=== PATIENT | male | born 1960 | race Caucasian/White ===

== ENCOUNTER → 2018-11-20 | Outpatient (REF) ==
[~2018-11-20] MED LIST: LISI-538 PO; METF10004 PO
== END ==
LOC: M LAB LCGH 11:27
PROVIDERS: ATTEND Nurse Practitioner Family
DX: Z53.9 Procedure and treatment not carried out, unspecified reason (principal)

== ENCOUNTER → 2019-01-01 | Outpatient (CLI) | payer BC ==
[~2019-01-01] MED LIST changes: +GASTROGRAFIN SOLUTION 30ML (Q9963) As Ordered ONE; +ISOVUE-370 76% 100ML VIAL (Q9967) As Ordered ONE
--- NOTE | 2019-01-01 14:47 | REP ---
CT CHEST WITH IV CONTRAST: HISTORY: Staging CLL. No comparison CT study. CT CONTRAST DOSE: 100 mL of intravenous Isovue [address] FINDINGS: There is good opacification of the thoracic aorta and its branches as well as the pulmonary arterial tree. There is no CT evidence to suggest pulmonary embolus. Vascular calcification is noted. There is some mild plaquing and mild narrowing of the left subclavian artery. There is a significant focal narrowing of the proximal thoracic aorta approximately 3.4 cm distal to the origin of the left subclavian artery. Findings are consistent with coarctation of the aorta. At the level of the coarct, the aortic lumen narrows to 7.0 mm in greatest diameter, the aortic diameter distal to the left subclavian artery and proximal to the coarct is 27 mm. The proximal descending aorta just distal to the coarct measures 38 mm. No pleural or pericardial effusion is seen. There is no hilar or mediastinal adenopathy. There are a few scattered normal-sized subcentimeter lymph nodes in the mediastinum. The lung rebollar are clear. No bony destructive lesion is seen. IMPRESSION: 1. Incidental significant appearing coarctation of the thoracic aorta. There is post stenotic dilation. 2. No evidence of mass or adenopathy. Electronically Signed by Lobo Chapman MD 01/01/2019 05:03 P
--- NOTE | 2019-01-01 14:52 | REP ---
CT ABDOMEN AND PELVIS WITH IV AND ORAL CONTRAST: HISTORY: Staging CLL. No comparison CT study. CT CONTRAST DOSE: 100 mL of intravenous Isovue 370. CT FINDINGS: Digital preliminary radio station engineer radiograph demonstrates an unremarkable bowel gas pattern. There is mild to moderate diffuse fatty infiltration of the liver. The liver is not felt to be enlarged. No focal liver mass lesion is seen. The spleen is homogeneous in texture, normal in size. No adrenal lesion is seen. No abnormality is noted in the pancreas or gallbladder. There are some upper abdominal periaortic and portacaval lymph nodes. The portacaval node is the largest lymph node visible in the upper abdomen. This measures 4.1 cm craniocaudal x 3.3 cm medial to lateral x 1.6 cm anteroposterior. The other visualized retroperitoneal lymph nodes are smaller and individually normal in size. No mesenteric adenopathy is appreciated. No inguinal or pelvic adenopathy is seen. There is some calcification of the vas deferens and dystrophic calcifications are seen in the prostate. Urinary bladder is unremarkable. No bony destructive lesion is seen. IMPRESSION: There is one prominent lymph node in the portacaval location in the upper abdomen, 4.1 x 3.3 x 1.6 cm in diameter. Diffuse fatty infiltration is seen in the liver. Otherwise negative. Electronically Signed by Lobo Chapman MD 01/01/2019 05:03 P
== END ==
LOC: M RAD 12:12
PROVIDERS: ATTEND Internal Medicine Hematology
DX: C91.10 Chronic lymphocytic leukemia of B-cell type not having achieved remission (principal)
CPT/HCPCS: 71260; 74178; Q9963; Q9967

== ENCOUNTER 2021-02-24 19:19 | Inpatient (IN) | payer BC ==
[~2021-02-24] VITALS: Ht 165.1 cm; Wt 101.3 kg
[~2021-02-24 19:19] MED LIST changes: -GASTROGRAFIN SOLUTION 30ML (Q9963) As Ordered ONE; +GLIM2TAB4 PO; -ISOVUE-370 76% 100ML VIAL (Q9967) As Ordered ONE; -LISI-538 PO; +LISI20TA33 PO; +LISI30TA4 PO
[2021-02-24] MEDS ORDERED: MOM 30ML SUSPENSION UDC PO PRN (19:45)
[2021-02-24 20:00] VITALS: BP 161/78
[2021-02-24] MEDS ORDERED: ENOXAPARIN 100MG/1ML SYRINGE (J1650 PER 10MG) SC SCH (21:00)
[2021-02-24 21:11] LABS: HEMATOCRIT 42.1 % (42.0-52.0); HEMOGLOBIN 13.6 g/dl (13.5-17.5); MEAN CORPUSCULAR HEMOGLOBIN 25.2 pg (27.0-33.0); MEAN CORPUSCULAR HGB CONC 32.3 g/dl (32.0-36.5); MEAN CORPUSCULAR VOLUME 78.1 fl (80.0-96.0); PLATELET COUNT, AUTOMATED 251 10^3/uL (150-450); RED BLOOD COUNT 5.39 10^6/uL (4.30-6.10); WHITE BLOOD COUNT 10.4 10^3/uL (4.0-10.0)
[2021-02-24 21:22] LABS: FIBRINOGEN 296 MG/DL (268-480); INR 1.18; PROTHROMBIN TIME 15.4 SECONDS (12.7-14.5)
[2021-02-24 21:30] LABS: ABG HCO3 23.1 MEQ/L (22.0-26.0); ABG O2 SATURATION 94.5 % (95.0-99.0); ABG PARTIAL PRESSURE CO2 36.9 mmHg (35.0-45.0); ABG PARTIAL PRESSURE O2 76.6 mmHg (75.0-100.0); ABG STANDARD HCO3 23.6 MEQ/L (22.0-26.0); ABG TOTAL CO2 24.3 MEQ/L (23.0-31.0); ABG pH (ARTERIAL) 7.415 UNITS (7.350-7.450)
[2021-02-24 21:41] LABS: RSV AMPLIFICATION NEGATIVE (NEGATIVE)
[2021-02-24 21:46] LABS: ALBUMIN 3.2 GM/DL (3.2-5.2); ALT/SGPT 59 U/L (12-78); BILIRUBIN,TOTAL 0.3 MG/DL (0.2-1.0); BLOOD UREA NITROGEN 22 MG/DL (7-18); CALCIUM LEVEL 8.5 MG/DL (8.8-10.2); CARBON DIOXIDE LEVEL 29 MEQ/L (21-32); CHLORIDE LEVEL 99 MEQ/L (98-107); CREATININE FOR GFR 0.96 MG/DL (0.70-1.30); FERRITIN 1168 NG/ML (26-388); GLOMERULAR FILTRATION RATE > 60.0 (>49); GLUCOSE, FASTING 137 MG/DL (70-100); LDH LACTATE DEHYDROGENASE 861 U/L (87-241); MAGNESIUM LEVEL 2.5 MG/DL (1.8-2.4); NT-PRO BNP 56 PG/ML (<125); POTASSIUM SERUM 5.3 MEQ/L (3.5-5.1); SODIUM LEVEL 134 MEQ/L (136-145); TOTAL PROTEIN 6.5 GM/DL (6.4-8.2)
[2021-02-24 22:00] VITALS: BP 146/76
[2021-02-24] MEDS: DOCUSATE SODIUM 100MG CAPSULE PO SCH (22:06)
[2021-02-24 22:30] LABS: D-DIMER QUANT > 4000 ng/ml (<500)
[2021-02-24] MEDS ORDERED: SOD POLYSTYRENE SULFONATE SUSP 15 GM/60 ML UD PO ONE (23:00)
[2021-02-24] MEDS ORDERED: DEXTROSE 50% 50 ML SYRINGE IV PRN (23:25)
[2021-02-24] MEDS ORDERED: GLUCAGON INJ 1MG VIAL SC PRN (23:25)
[2021-02-24] MEDS ORDERED: GLUCOSE 4GM CHEW TABLET PO PRN (23:25)
[2021-02-25] VITALS (8 sets, daily range): BP systolic 118–158; BP diastolic 53–80
[2021-02-25] MEDS ORDERED: ALBUTEROL 90 MCG/ACT 8GM HFA INHALER INH PRN (00:20)
[2021-02-25] MEDS: PIPERACILLIN/TAZOBACTAM SOD 4.5 GM in D5W MINI-BAG PLUS 100 ML IV SCH ×4 (00:57→18:05)
[2021-02-25] MEDS: BARICITINIB 2MG TABLET (OLUMIANT) FOR EUA PO SCH ×2 (00:59→20:48)
[2021-02-25] MEDS ORDERED: METF-877 PO (01:12)
[2021-02-25] MEDS ORDERED: LISI30TA4 PO (01:12)
[2021-02-25] MEDS ORDERED: GLIM2TAB4 PO (01:12)
[2021-02-25] MEDS: guaiFENesin SYRUP 200MG 10ML UDC PO PRN (01:13)
[2021-02-25] MEDS ORDERED: HOME MED LIST COMPLETE! XX SCH (01:15)
[2021-02-25] MEDS: VANCOMYCIN HCL 1,000 MG, VIAL MATE ADAPTER 1 EACH in NS 250 ML IV SCH ×2 (02:00→09:51)
[2021-02-25] MEDS ORDERED: VANCOMYCIN HCL 1,000 MG, VIAL MATE ADAPTER 1 EACH in NS 250 ML IV ONE (03:00)
[2021-02-25 05:59] LABS: HEMATOCRIT 37.1 % (42.0-52.0); MEAN CORPUSCULAR HEMOGLOBIN 25.3 pg (27.0-33.0); MEAN CORPUSCULAR HGB CONC 32.3 g/dl (32.0-36.5); MEAN CORPUSCULAR VOLUME 78.1 fl (80.0-96.0); PLATELET COUNT, AUTOMATED 235 10^3/uL (150-450); RED BLOOD COUNT 4.75 10^6/uL (4.30-6.10); WHITE BLOOD COUNT 10.1 10^3/uL (4.0-10.0)
[2021-02-25] MEDS ORDERED: ENOXAPARIN 100MG/1ML SYRINGE (J1650 PER 10MG) SC SCH (06:00)
[2021-02-25 06:32] LABS: ALBUMIN 2.9 GM/DL (3.2-5.2); ALT/SGPT 48 U/L (12-78); BILIRUBIN,DIRECT 0.2 MG/DL (0.0-0.2); BILIRUBIN,TOTAL 0.4 MG/DL (0.2-1.0); BLOOD UREA NITROGEN 23 MG/DL (7-18); CARBON DIOXIDE LEVEL 26 MEQ/L (21-32); CHLORIDE LEVEL 101 MEQ/L (98-107); CREATININE FOR GFR 0.86 MG/DL (0.70-1.30); GLOMERULAR FILTRATION RATE > 60.0 (>49); GLUCOSE, FASTING 105 MG/DL (70-100); MAGNESIUM LEVEL 2.3 MG/DL (1.8-2.4); POTASSIUM SERUM 4.5 MEQ/L (3.5-5.1); SODIUM LEVEL 135 MEQ/L (136-145); TOTAL PROTEIN 5.9 GM/DL (6.4-8.2)
[2021-02-25] MEDS: HumaLOG INSULIN (NovoLOG) PER UNIT SC SCH ×4 (07:27→20:49)
[2021-02-25] MEDS: DOCUSATE SODIUM 100MG CAPSULE PO SCH ×2 (07:28→20:48)
[2021-02-25] MEDS: dexameTHASONE 4 MG/ML 1ML VIAL (J1100 PER 1MG) IV SCH (09:51)
[2021-02-25] MEDS: REMDESIVIR 100 MG in NS 250 ML IV SCH (12:16)
[2021-02-25] MEDS: ENOXAPARIN 80MG/0.8ML SYRINGE (J1650 PER 10MG) SC SCH (18:05)
[2021-02-26] VITALS: BP 132/64
[2021-02-26] MEDS: PIPERACILLIN/TAZOBACTAM SOD 4.5 GM in D5W MINI-BAG PLUS 100 ML IV SCH ×3 (00:36→12:44)
[2021-02-26 04:00] VITALS: BP 138/68
[2021-02-26] MEDS: ENOXAPARIN 80MG/0.8ML SYRINGE (J1650 PER 10MG) SC SCH ×2 (05:13→17:20)
[2021-02-26 05:30] LABS: BASO % 0.2 % (0.0-1.0); EOS # 0.1 10^3/uL (0.0-0.5); EOS % 0.7 % (0.0-3.0); HEMATOCRIT 37.1 % (42.0-52.0); HEMOGLOBIN 11.7 g/dl (13.5-17.5); LYMPH # 6.8 10^3/uL (1.5-5.0); LYMPH % 63.7 % (24.0-44.0); MEAN CORPUSCULAR HEMOGLOBIN 25.1 pg (27.0-33.0); MEAN CORPUSCULAR HGB CONC 31.5 g/dl (32.0-36.5); MEAN CORPUSCULAR VOLUME 79.6 fl (80.0-96.0); MONO # 0.2 10^3/uL (0.0-0.8); NEUTROPHILS # 3.5 10^3/uL (1.5-8.5); NEUTROPHILS % 32.9 % (36.0-66.0); PLATELET COUNT, AUTOMATED 223 10^3/uL (150-450); RED BLOOD COUNT 4.66 10^6/uL (4.30-6.10); WHITE BLOOD COUNT 10.7 10^3/uL (4.0-10.0)
[2021-02-26 06:02] LABS: ALBUMIN 2.7 GM/DL (3.2-5.2); ALT/SGPT 42 U/L (12-78); BILIRUBIN,TOTAL 0.4 MG/DL (0.2-1.0); BLOOD UREA NITROGEN 25 MG/DL (7-18); CARBON DIOXIDE LEVEL 30 MEQ/L (21-32); CHLORIDE LEVEL 102 MEQ/L (98-107); CREATININE FOR GFR 0.88 MG/DL (0.70-1.30); GLOMERULAR FILTRATION RATE > 60.0 (>49); GLUCOSE, FASTING 89 MG/DL (70-100); MAGNESIUM LEVEL 2.4 MG/DL (1.8-2.4); PHOSPHORUS LEVEL 4.8 MG/DL (2.5-4.9); POTASSIUM SERUM 4.9 MEQ/L (3.5-5.1); SODIUM LEVEL 138 MEQ/L (136-145); TOTAL PROTEIN 6.1 GM/DL (6.4-8.2)
[2021-02-26] MEDS: guaiFENesin SYRUP 200MG 10ML UDC PO PRN (06:20)
[2021-02-26 07:09] VITALS: BP 116/59
[2021-02-26] MEDS: HumaLOG INSULIN (NovoLOG) PER UNIT SC SCH ×4 (07:30→21:00)
[2021-02-26] MEDS: DOCUSATE SODIUM 100MG CAPSULE PO SCH (07:33)
[2021-02-26] MEDS: dexameTHASONE 4 MG/ML 1ML VIAL (J1100 PER 1MG) IV SCH (08:28)
[2021-02-26] MEDS: REMDESIVIR 100 MG in NS 250 ML IV SCH (11:00)
[2021-02-26 12:45] VITALS: BP 129/59
[2021-02-26] MEDS: MOXIFLOXACIN HCL 400 MG in IV 1 EA IV SCH (16:23)
[2021-02-26 16:25] VITALS: BP 142/67
[2021-02-26 20:00] VITALS: BP 161/65
[2021-02-26] MEDS: BENZONATATE 100MG CAPSULE PO PRN (21:34)
[2021-02-26] MEDS: BARICITINIB 2MG TABLET (OLUMIANT) FOR EUA PO SCH (21:34)
[2021-02-27] VITALS: BP 146/72
[2021-02-27] MEDS: guaiFENesin SYRUP 200MG 10ML UDC PO PRN ×5 (01:44→20:26)
[2021-02-27 04:00] VITALS: BP 141/85
[2021-02-27] MEDS: ENOXAPARIN 80MG/0.8ML SYRINGE (J1650 PER 10MG) SC SCH ×2 (06:10→18:07)
[2021-02-27] MEDS: BENZONATATE 100MG CAPSULE PO PRN (06:10)
[2021-02-27 06:30] LABS: HEMATOCRIT 36.6 % (42.0-52.0); HEMOGLOBIN 11.7 g/dl (13.5-17.5); MEAN CORPUSCULAR HEMOGLOBIN 25.7 pg (27.0-33.0); MEAN CORPUSCULAR VOLUME 80.3 fl (80.0-96.0); PLATELET COUNT, AUTOMATED 199 10^3/uL (150-450); RED BLOOD COUNT 4.56 10^6/uL (4.30-6.10); WHITE BLOOD COUNT 12.5 10^3/uL (4.0-10.0)
[2021-02-27 06:48] LABS: BLOOD UREA NITROGEN 21 MG/DL (7-18); CALCIUM LEVEL 7.9 MG/DL (8.8-10.2); CARBON DIOXIDE LEVEL 31 MEQ/L (21-32); CHLORIDE LEVEL 103 MEQ/L (98-107); CREATININE FOR GFR 0.85 MG/DL (0.70-1.30); GLOMERULAR FILTRATION RATE > 60.0 (>49); GLUCOSE, FASTING 90 MG/DL (70-100); POTASSIUM SERUM 5.1 MEQ/L (3.5-5.1); SODIUM LEVEL 136 MEQ/L (136-145)
[2021-02-27 06:54] LABS: ATYPICAL LYMPH 26 % (0-5); EOSINOPHILS 2 % (0-3); LYMPHOCYTES 21 % (16-44); MONOCYTES 1 % (0-5); NEUTROPHILS 50 % (28-66)
[2021-02-27 06:55] LABS: ANISOCYTOSIS 1+; PLATELET ESTIMATE NORMAL (NORMAL)
[2021-02-27 06:56] LABS: POIKILOCYTOSIS 1+; POLYCHROMASIA 1+
[2021-02-27] MEDS: HumaLOG INSULIN (NovoLOG) PER UNIT SC SCH ×4 (07:30→20:26)
[2021-02-27 07:43] VITALS: BP 155/79
[2021-02-27] MEDS: dexameTHASONE 4 MG/ML 1ML VIAL (J1100 PER 1MG) IV SCH (08:54)
[2021-02-27] MEDS: REMDESIVIR 100 MG in NS 250 ML IV SCH (11:37)
[2021-02-27 11:39] VITALS: BP 142/63
[2021-02-27 15:11] LABS: BODY FLUID CULTURE Not indicated. (.); LEGIONELLA ANTIGEN URINE Negative (Negative); ORGANISM ID Not indicated. (.); SPECIMEN SOURCE Urine (.); URINE STREP PNEUMONIAE ANTIGEN Negative (Negative)
[2021-02-27] MEDS: BENZONATATE 100MG CAPSULE PO SCH ×2 (15:38→20:26)
[2021-02-27] MEDS: MOXIFLOXACIN HCL 400 MG in IV 1 EA IV SCH (15:38)
[2021-02-27 15:42] VITALS: BP 139/61
[2021-02-27 20:00] VITALS: BP 145/67
[2021-02-27] MEDS: BARICITINIB 2MG TABLET (OLUMIANT) FOR EUA PO SCH (20:26)
[2021-02-27] MEDS: ACETAMINOPHEN TAB 650MG DOSE (2X325MG) PO PRN (20:27)
[2021-02-28] VITALS: BP 123/74
[2021-02-28 04:00] VITALS: BP 119/73
[2021-02-28 05:49] LABS: HEMATOCRIT 36.7 % (42.0-52.0); HEMOGLOBIN 11.5 g/dl (13.5-17.5); MEAN CORPUSCULAR HEMOGLOBIN 25.3 pg (27.0-33.0); MEAN CORPUSCULAR HGB CONC 31.3 g/dl (32.0-36.5); MEAN CORPUSCULAR VOLUME 80.7 fl (80.0-96.0); PLATELET COUNT, AUTOMATED 197 10^3/uL (150-450); RED BLOOD COUNT 4.55 10^6/uL (4.30-6.10); WHITE BLOOD COUNT 12.4 10^3/uL (4.0-10.0)
[2021-02-28] MEDS: ENOXAPARIN 80MG/0.8ML SYRINGE (J1650 PER 10MG) SC SCH ×2 (06:00→17:41)
[2021-02-28 06:06] LABS: ALT/SGPT 44 U/L (12-78); BILIRUBIN,TOTAL 0.4 MG/DL (0.2-1.0); BLOOD UREA NITROGEN 22 MG/DL (7-18); CALCIUM LEVEL 8.1 MG/DL (8.8-10.2); CARBON DIOXIDE LEVEL 28 MEQ/L (21-32); CHLORIDE LEVEL 102 MEQ/L (98-107); CREATININE FOR GFR 0.73 MG/DL (0.70-1.30); GLOMERULAR FILTRATION RATE > 60.0 (>49); GLUCOSE, FASTING 108 MG/DL (70-100); MAGNESIUM LEVEL 2.1 MG/DL (1.8-2.4); PHOSPHORUS LEVEL 3.9 MG/DL (2.5-4.9); POTASSIUM SERUM 4.5 MEQ/L (3.5-5.1); SODIUM LEVEL 135 MEQ/L (136-145)
[2021-02-28 06:52] LABS: ATYPICAL LYMPH 15 % (0-5); EOSINOPHILS 1 % (0-3); LYMPHOCYTES 31 % (16-44); MONOCYTES 2 % (0-5); NEUTROPHILS 48 % (28-66); PLASMA CELL 1 % (0-0)
[2021-02-28 06:56] LABS: ANISOCYTOSIS 1+; MICROCYTOSIS 1+; PLATELET CLUMPS SMALL AMT; PLATELET ESTIMATE NORMAL (NORMAL); SMUDGE CELLS 1+
[2021-02-28] MEDS: HumaLOG INSULIN (NovoLOG) PER UNIT SC SCH ×4 (07:28→20:39)
[2021-02-28] MEDS: dexameTHASONE 4 MG/ML 1ML VIAL (J1100 PER 1MG) IV SCH ×2 (07:56→08:00)
[2021-02-28] MEDS: BENZONATATE 100MG CAPSULE PO SCH ×3 (07:56→20:38)
[2021-02-28 08:02] VITALS: BP 129/60
[2021-02-28] MEDS: REMDESIVIR 100 MG in NS 250 ML IV SCH (10:42)
[2021-02-28] MEDS: guaiFENesin SYRUP 200MG 10ML UDC PO PRN ×2 (10:42→16:29)
[2021-02-28 12:00] VITALS: BP 136/60
[2021-02-28 16:24] VITALS: BP 134/67
[2021-02-28] MEDS: MOXIFLOXACIN HCL 400 MG in IV 1 EA IV SCH (16:29)
[2021-02-28 20:00] VITALS: BP 122/73
[2021-02-28] MEDS: BARICITINIB 2MG TABLET (OLUMIANT) FOR EUA PO SCH (20:38)
[2021-03-01] VITALS: BP 120/70
[2021-03-01 04:00] VITALS: BP 136/69
[2021-03-01 05:03] LABS: HEMOGLOBIN 12.1 g/dl (13.5-17.5); MEAN CORPUSCULAR HEMOGLOBIN 25.5 pg (27.0-33.0); MEAN CORPUSCULAR HGB CONC 31.8 g/dl (32.0-36.5); MEAN CORPUSCULAR VOLUME 80.2 fl (80.0-96.0); PLATELET COUNT, AUTOMATED 183 10^3/uL (150-450); RED BLOOD COUNT 4.74 10^6/uL (4.30-6.10); WHITE BLOOD COUNT 16.4 10^3/uL (4.0-10.0)
[2021-03-01 05:22] LABS: ALT/SGPT 43 U/L (12-78); BILIRUBIN,TOTAL 0.5 MG/DL (0.2-1.0); BLOOD UREA NITROGEN 19 MG/DL (7-18); CALCIUM LEVEL 8.1 MG/DL (8.8-10.2); CARBON DIOXIDE LEVEL 28 MEQ/L (21-32); CHLORIDE LEVEL 101 MEQ/L (98-107); CREATININE FOR GFR 0.78 MG/DL (0.70-1.30); GLOMERULAR FILTRATION RATE > 60.0 (>49); GLUCOSE, FASTING 124 MG/DL (70-100); POTASSIUM SERUM 4.8 MEQ/L (3.5-5.1); SODIUM LEVEL 135 MEQ/L (136-145); TOTAL PROTEIN 6.5 GM/DL (6.4-8.2)
[2021-03-01] MEDS: ENOXAPARIN 80MG/0.8ML SYRINGE (J1650 PER 10MG) SC SCH ×2 (06:30→18:31)
[2021-03-01] MEDS: guaiFENesin SYRUP 200MG 10ML UDC PO PRN ×2 (08:38→13:34)
[2021-03-01] MEDS: BENZONATATE 100MG CAPSULE PO SCH ×3 (08:38→20:45)
[2021-03-01] MEDS: HumaLOG INSULIN (NovoLOG) PER UNIT SC SCH ×4 (08:39→20:46)
[2021-03-01] MEDS: dexameTHASONE 4 MG/ML 1ML VIAL (J1100 PER 1MG) IV SCH (08:39)
[2021-03-01 08:40] VITALS: BP 129/61
[2021-03-01 11:50] VITALS: BP 135/61
[2021-03-01] MEDS: MOXIFLOXACIN HCL 400 MG in IV 1 EA IV SCH (17:03)
[2021-03-01 17:09] VITALS: BP 154/67
[2021-03-01 20:00] VITALS: BP 154/68
[2021-03-01] MEDS: BARICITINIB 2MG TABLET (OLUMIANT) FOR EUA PO SCH (20:46)
[2021-03-02] VITALS (8 sets, daily range): BP systolic 122–164; BP diastolic 59–75
[2021-03-02 05:44] LABS: BLOOD UREA NITROGEN 17 MG/DL (7-18); CALCIUM LEVEL 8.1 MG/DL (8.8-10.2); CARBON DIOXIDE LEVEL 29 MEQ/L (21-32); CHLORIDE LEVEL 103 MEQ/L (98-107); CREATININE FOR GFR 0.76 MG/DL (0.70-1.30); GLOMERULAR FILTRATION RATE > 60.0 (>49); GLUCOSE, FASTING 130 MG/DL (70-100); MAGNESIUM LEVEL 2.2 MG/DL (1.8-2.4); POTASSIUM SERUM 4.4 MEQ/L (3.5-5.1); SODIUM LEVEL 137 MEQ/L (136-145)
[2021-03-02] MEDS: ENOXAPARIN 80MG/0.8ML SYRINGE (J1650 PER 10MG) SC SCH ×2 (06:12→18:39)
[2021-03-02] MEDS: HumaLOG INSULIN (NovoLOG) PER UNIT SC SCH ×4 (09:58→20:52)
[2021-03-02] MEDS: dexameTHASONE 4 MG/ML 1ML VIAL (J1100 PER 1MG) IV SCH (09:59)
[2021-03-02] MEDS: guaiFENesin SYRUP 200MG 10ML UDC PO PRN ×3 (09:59→20:38)
[2021-03-02] MEDS: BENZONATATE 100MG CAPSULE PO SCH ×3 (09:59→20:37)
[2021-03-02] MEDS ORDERED: MOXIFLOXACIN 400 MG TAB PO SCH (16:00)
[2021-03-02] MEDS: BARICITINIB 2MG TABLET (OLUMIANT) FOR EUA PO SCH (20:38)
[2021-03-03] VITALS (7 sets, daily range): BP systolic 130–159; BP diastolic 60–77
[2021-03-03 04:55] LABS: HEMATOCRIT 35.8 % (42.0-52.0); HEMOGLOBIN 11.4 g/dl (13.5-17.5); MEAN CORPUSCULAR HEMOGLOBIN 25.7 pg (27.0-33.0); MEAN CORPUSCULAR HGB CONC 31.8 g/dl (32.0-36.5); MEAN CORPUSCULAR VOLUME 80.6 fl (80.0-96.0); PLATELET COUNT, AUTOMATED 180 10^3/uL (150-450); RED BLOOD COUNT 4.44 10^6/uL (4.30-6.10); WHITE BLOOD COUNT 14.3 10^3/uL (4.0-10.0)
[2021-03-03] MEDS: ENOXAPARIN 80MG/0.8ML SYRINGE (J1650 PER 10MG) SC SCH ×2 (05:23→16:46)
[2021-03-03 05:26] LABS: BLOOD UREA NITROGEN 19 MG/DL (7-18); CALCIUM LEVEL 8.2 MG/DL (8.8-10.2); CARBON DIOXIDE LEVEL 28 MEQ/L (21-32); CHLORIDE LEVEL 102 MEQ/L (98-107); CREATININE FOR GFR 0.84 MG/DL (0.70-1.30); GLOMERULAR FILTRATION RATE > 60.0 (>49); GLUCOSE, FASTING 132 MG/DL (70-100); MAGNESIUM LEVEL 2.2 MG/DL (1.8-2.4); PHOSPHORUS LEVEL 3.9 MG/DL (2.5-4.9); POTASSIUM SERUM 4.5 MEQ/L (3.5-5.1); SODIUM LEVEL 135 MEQ/L (136-145)
[2021-03-03] MEDS: HumaLOG INSULIN (NovoLOG) PER UNIT SC SCH ×4 (07:30→20:15)
[2021-03-03] MEDS: BENZONATATE 100MG CAPSULE PO SCH ×3 (09:12→20:16)
[2021-03-03] MEDS: guaiFENesin SYRUP 200MG 10ML UDC PO PRN ×3 (09:12→21:19)
[2021-03-03] MEDS: dexameTHASONE 4 MG/ML 1ML VIAL (J1100 PER 1MG) IV SCH (09:13)
[2021-03-03] MEDS: BARICITINIB 2MG TABLET (OLUMIANT) FOR EUA PO SCH (20:16)
[2021-03-04] VITALS (8 sets, daily range): BP systolic 117–165; BP diastolic 57–84
[2021-03-04] MEDS: ENOXAPARIN 80MG/0.8ML SYRINGE (J1650 PER 10MG) SC SCH ×2 (05:11→17:30)
[2021-03-04] MEDS: HumaLOG INSULIN (NovoLOG) PER UNIT SC SCH ×4 (07:30→20:22)
[2021-03-04] MEDS: guaiFENesin SYRUP 200MG 10ML UDC PO PRN ×3 (07:58→15:48)
[2021-03-04] MEDS: dexameTHASONE 4 MG/ML 1ML VIAL (J1100 PER 1MG) IV SCH (07:58)
[2021-03-04] MEDS: BENZONATATE 100MG CAPSULE PO SCH ×3 (07:59→20:22)
[2021-03-04] MEDS: BARICITINIB 2MG TABLET (OLUMIANT) FOR EUA PO SCH (20:22)
[2021-03-05] VITALS: BP 154/85
[2021-03-05 04:00] VITALS: BP 153/75
[2021-03-05 05:18] LABS: BLOOD UREA NITROGEN 18 MG/DL (7-18); CARBON DIOXIDE LEVEL 30 MEQ/L (21-32); CHLORIDE LEVEL 104 MEQ/L (98-107); GLOMERULAR FILTRATION RATE > 60.0 (>49); GLUCOSE, FASTING 130 MG/DL (70-100); MAGNESIUM LEVEL 2.2 MG/DL (1.8-2.4); PHOSPHORUS LEVEL 4.3 MG/DL (2.5-4.9); POTASSIUM SERUM 4.3 MEQ/L (3.5-5.1); SODIUM LEVEL 139 MEQ/L (136-145)
[2021-03-05] MEDS: ENOXAPARIN 80MG/0.8ML SYRINGE (J1650 PER 10MG) SC SCH ×2 (05:25→17:26)
[2021-03-05] MEDS: HumaLOG INSULIN (NovoLOG) PER UNIT SC SCH ×4 (07:30→20:44)
[2021-03-05 08:00] VITALS: BP 131/59
[2021-03-05] MEDS: dexameTHASONE 4 MG/ML 1ML VIAL (J1100 PER 1MG) IV SCH (10:03)
[2021-03-05] MEDS: BENZONATATE 100MG CAPSULE PO SCH ×3 (10:03→20:37)
[2021-03-05 12:00] VITALS: BP 118/57
[2021-03-05 16:00] VITALS: BP 139/63
[2021-03-05 20:00] VITALS: BP 129/77
[2021-03-05] MEDS: BARICITINIB 2MG TABLET (OLUMIANT) FOR EUA PO SCH (20:37)
[2021-03-06] VITALS (7 sets, daily range): BP systolic 117–151; BP diastolic 56–75
[2021-03-06] MEDS: ENOXAPARIN 80MG/0.8ML SYRINGE (J1650 PER 10MG) SC SCH ×2 (05:05→17:06)
[2021-03-06 05:06] LABS: HEMOGLOBIN 11.7 g/dl (13.5-17.5); MEAN CORPUSCULAR HEMOGLOBIN 25.9 pg (27.0-33.0); MEAN CORPUSCULAR HGB CONC 31.6 g/dl (32.0-36.5); MEAN CORPUSCULAR VOLUME 81.9 fl (80.0-96.0); PLATELET COUNT, AUTOMATED 207 10^3/uL (150-450); RED BLOOD COUNT 4.52 10^6/uL (4.30-6.10); WHITE BLOOD COUNT 17.3 10^3/uL (4.0-10.0)
[2021-03-06] MEDS: HumaLOG INSULIN (NovoLOG) PER UNIT SC SCH ×4 (07:30→20:58)
[2021-03-06] MEDS: dexameTHASONE 4 MG/ML 1ML VIAL (J1100 PER 1MG) IV SCH (08:30)
[2021-03-06] MEDS: BENZONATATE 100MG CAPSULE PO SCH ×3 (08:30→20:59)
[2021-03-06] MEDS: guaiFENesin SYRUP 200MG 10ML UDC PO PRN ×2 (08:30→17:05)
[2021-03-06] MEDS ORDERED: FUROSEMIDE 20MG/2ML VIAL (J1940) IV ONE (13:00)
[2021-03-06] MEDS: BARICITINIB 2MG TABLET (OLUMIANT) FOR EUA PO SCH (20:59)
[2021-03-07] VITALS (7 sets, daily range): BP systolic 135–165; BP diastolic 59–74
[2021-03-07] MEDS: ENOXAPARIN 80MG/0.8ML SYRINGE (J1650 PER 10MG) SC SCH (06:07)
[2021-03-07 07:48] LABS: HEMATOCRIT 38.2 % (42.0-52.0); MEAN CORPUSCULAR HEMOGLOBIN 25.6 pg (27.0-33.0); MEAN CORPUSCULAR HGB CONC 31.4 g/dl (32.0-36.5); MEAN CORPUSCULAR VOLUME 81.6 fl (80.0-96.0); PLATELET COUNT, AUTOMATED 229 10^3/uL (150-450); RED BLOOD COUNT 4.68 10^6/uL (4.30-6.10); WHITE BLOOD COUNT 17.7 10^3/uL (4.0-10.0)
[2021-03-07 08:09] LABS: ALBUMIN 3.2 GM/DL (3.2-5.2); ALT/SGPT 58 U/L (12-78); BILIRUBIN,TOTAL 0.3 MG/DL (0.2-1.0); BLOOD UREA NITROGEN 23 MG/DL (7-18); CALCIUM LEVEL 8.7 MG/DL (8.8-10.2); CARBON DIOXIDE LEVEL 34 MEQ/L (21-32); CHLORIDE LEVEL 101 MEQ/L (98-107); CREATININE FOR GFR 0.81 MG/DL (0.70-1.30); GLOMERULAR FILTRATION RATE > 60.0 (>49); GLUCOSE, FASTING 119 MG/DL (70-100); MAGNESIUM LEVEL 2.2 MG/DL (1.8-2.4); PHOSPHORUS LEVEL 4.1 MG/DL (2.5-4.9); POTASSIUM SERUM 4.5 MEQ/L (3.5-5.1); SODIUM LEVEL 137 MEQ/L (136-145); TOTAL PROTEIN 6.6 GM/DL (6.4-8.2)
[2021-03-07 08:24] LABS: ATYPICAL LYMPH 8 % (0-5); LYMPHOCYTES 63 % (16-44); MONOCYTES 4 % (0-5); NEUTROPHILS 25 % (28-66)
[2021-03-07 08:26] LABS: PLATELET CLUMPS SMALL AMT; PLATELET ESTIMATE NORMAL (NORMAL); SMUDGE CELLS 1+
[2021-03-07 08:27] LABS: ANISOCYTOSIS 1+; OVALOCYTES 1+
[2021-03-07] MEDS: BENZONATATE 100MG CAPSULE PO SCH ×3 (08:27→20:43)
[2021-03-07] MEDS: HumaLOG INSULIN (NovoLOG) PER UNIT SC SCH ×4 (08:28→20:46)
[2021-03-07] MEDS: dexameTHASONE 20MG/5ML VIAL (J1100 PER 1MG) IV SCH (12:40)
[2021-03-07] MEDS: ENOXAPARIN 60MG/0.6ML SYRINGE (J1650 PER 10MG) SC SCH (17:00)
[2021-03-07] MEDS: BARICITINIB 2MG TABLET (OLUMIANT) FOR EUA PO SCH (20:43)
[2021-03-08] VITALS: BP 146/66
[2021-03-08 04:00] VITALS: BP 152/73
[2021-03-08] MEDS: ENOXAPARIN 60MG/0.6ML SYRINGE (J1650 PER 10MG) SC SCH ×2 (05:21→17:04)
[2021-03-08 08:16] VITALS: BP 135/72
[2021-03-08] MEDS: HumaLOG INSULIN (NovoLOG) PER UNIT SC SCH ×4 (08:16→20:48)
[2021-03-08] MEDS: dexameTHASONE 20MG/5ML VIAL (J1100 PER 1MG) IV SCH (08:17)
[2021-03-08] MEDS: BENZONATATE 100MG CAPSULE PO SCH ×3 (08:17→20:47)
[2021-03-08 12:36] VITALS: BP 155/75
[2021-03-08] MEDS: FUROSEMIDE 40MG/4ML VIAL (J1940) IV SCH (13:44)
[2021-03-08 17:01] VITALS: BP 151/72
[2021-03-08 20:00] VITALS: BP 154/70
[2021-03-08] MEDS: BARICITINIB 2MG TABLET (OLUMIANT) FOR EUA PO SCH (20:47)
[2021-03-09] VITALS (7 sets, daily range): BP systolic 116–175; BP diastolic 57–76
[2021-03-09 04:37] LABS: HEMATOCRIT 35.9 % (42.0-52.0); HEMOGLOBIN 11.3 g/dl (13.5-17.5); MEAN CORPUSCULAR HEMOGLOBIN 25.4 pg (27.0-33.0); MEAN CORPUSCULAR HGB CONC 31.5 g/dl (32.0-36.5); MEAN CORPUSCULAR VOLUME 80.7 fl (80.0-96.0); PLATELET COUNT, AUTOMATED 223 10^3/uL (150-450); RED BLOOD COUNT 4.45 10^6/uL (4.30-6.10); WHITE BLOOD COUNT 14.8 10^3/uL (4.0-10.0)
[2021-03-09 05:05] LABS: MAGNESIUM LEVEL 2.1 MG/DL (1.8-2.4); PHOSPHORUS LEVEL 3.4 MG/DL (2.5-4.9)
[2021-03-09 05:10] LABS: ALBUMIN 3.2 GM/DL (3.2-5.2); ALT/SGPT 66 U/L (12-78); BILIRUBIN,TOTAL 0.5 MG/DL (0.2-1.0); BLOOD UREA NITROGEN 22 MG/DL (7-18); CALCIUM LEVEL 8.2 MG/DL (8.8-10.2); CARBON DIOXIDE LEVEL 33 MEQ/L (21-32); CHLORIDE LEVEL 101 MEQ/L (98-107); CREATININE FOR GFR 0.81 MG/DL (0.70-1.30); GLOMERULAR FILTRATION RATE > 60.0 (>49); GLUCOSE, FASTING 137 MG/DL (70-100); LYMPHOCYTES 65 % (16-44); MONOCYTES 3 % (0-5); NEUTROPHILS 31 % (28-66); POTASSIUM SERUM 4.8 MEQ/L (3.5-5.1); SODIUM LEVEL 138 MEQ/L (136-145); TOTAL PROTEIN 6.6 GM/DL (6.4-8.2)
[2021-03-09 05:11] LABS: PLATELET ESTIMATE NORMAL (NORMAL)
[2021-03-09] MEDS: ENOXAPARIN 60MG/0.6ML SYRINGE (J1650 PER 10MG) SC SCH ×2 (06:32→17:41)
[2021-03-09] MEDS: HumaLOG INSULIN (NovoLOG) PER UNIT SC SCH ×4 (07:35→20:15)
[2021-03-09] MEDS: BENZONATATE 100MG CAPSULE PO SCH ×3 (08:43→20:13)
[2021-03-09] MEDS: FUROSEMIDE 40MG/4ML VIAL (J1940) IV SCH (08:45)
[2021-03-09] MEDS: dexameTHASONE 20MG/5ML VIAL (J1100 PER 1MG) IV SCH (08:45)
[2021-03-09] MEDS: BARICITINIB 2MG TABLET (OLUMIANT) FOR EUA PO SCH (20:13)
[2021-03-10] VITALS (7 sets, daily range): BP systolic 135–153; BP diastolic 63–80
[2021-03-10 05:42] LABS: HEMOGLOBIN 11.4 g/dl (13.5-17.5); MEAN CORPUSCULAR HEMOGLOBIN 25.7 pg (27.0-33.0); MEAN CORPUSCULAR HGB CONC 31.7 g/dl (32.0-36.5); MEAN CORPUSCULAR VOLUME 81.1 fl (80.0-96.0); PLATELET COUNT, AUTOMATED 222 10^3/uL (150-450); RED BLOOD COUNT 4.44 10^6/uL (4.30-6.10); WHITE BLOOD COUNT 13.8 10^3/uL (4.0-10.0)
[2021-03-10 06:02] LABS: ALBUMIN 3.1 GM/DL (3.2-5.2); ALT/SGPT 69 U/L (12-78); BILIRUBIN,TOTAL 0.3 MG/DL (0.2-1.0); BLOOD UREA NITROGEN 24 MG/DL (7-18); CALCIUM LEVEL 8.3 MG/DL (8.8-10.2); CARBON DIOXIDE LEVEL 31 MEQ/L (21-32); CHLORIDE LEVEL 101 MEQ/L (98-107); CREATININE FOR GFR 0.78 MG/DL (0.70-1.30); GLOMERULAR FILTRATION RATE > 60.0 (>49); GLUCOSE, FASTING 129 MG/DL (70-100); MAGNESIUM LEVEL 2.2 MG/DL (1.8-2.4); PHOSPHORUS LEVEL 3.7 MG/DL (2.5-4.9); POTASSIUM SERUM 4.6 MEQ/L (3.5-5.1); SODIUM LEVEL 136 MEQ/L (136-145); TOTAL PROTEIN 6.3 GM/DL (6.4-8.2)
[2021-03-10 06:16] LABS: ATYPICAL LYMPH 7 % (0-5); LYMPHOCYTES 69 % (16-44); NEUTROPHILS 24 % (28-66); PLATELET ESTIMATE NORMAL (NORMAL)
[2021-03-10] MEDS: ENOXAPARIN 60MG/0.6ML SYRINGE (J1650 PER 10MG) SC SCH ×2 (06:29→17:14)
[2021-03-10] MEDS: HumaLOG INSULIN (NovoLOG) PER UNIT SC SCH ×4 (07:37→20:58)
[2021-03-10] MEDS ORDERED: SODIUM CHLORIDE NASAL 0.65% SPRAY BTL (OCEAN) PRN (08:25)
[2021-03-10] MEDS: ESCITALOPRAM OXALATE 5MG TABLET (LEXAPRO) PO SCH (08:54)
[2021-03-10] MEDS: BENZONATATE 100MG CAPSULE PO SCH ×3 (08:54→20:55)
[2021-03-10] MEDS: FUROSEMIDE 40MG/4ML VIAL (J1940) IV SCH (08:55)
[2021-03-10] MEDS ORDERED: predniSONE 20 MG TAB PO SCH (09:00)
[2021-03-10] MEDS: predniSONE 10 MG TAB PO SCH (09:03)
[2021-03-11] VITALS: BP 138/62
[2021-03-11 04:00] VITALS: BP 169/74
[2021-03-11] MEDS: ENOXAPARIN 60MG/0.6ML SYRINGE (J1650 PER 10MG) SC SCH ×2 (06:00→16:50)
[2021-03-11] MEDS: HumaLOG INSULIN (NovoLOG) PER UNIT SC SCH ×4 (07:30→20:48)
[2021-03-11] MEDS: FUROSEMIDE 40MG/4ML VIAL (J1940) IV SCH (07:45)
[2021-03-11] MEDS: ESCITALOPRAM OXALATE 5MG TABLET (LEXAPRO) PO SCH (07:45)
[2021-03-11] MEDS: BENZONATATE 100MG CAPSULE PO SCH ×3 (07:49→20:47)
[2021-03-11] MEDS: predniSONE 10 MG TAB PO SCH (07:50)
[2021-03-11 08:00] VITALS: BP 122/56
[2021-03-11 12:00] VITALS: BP 143/66
[2021-03-11] MEDS ORDERED: LEVEMIR (INSULIN DETEMIR) 1 UNITS/0.01ML SC ONE (13:45)
[2021-03-11] MEDS: SODIUM CHLORIDE NASAL 0.65% SPRAY BTL (OCEAN) SCH ×3 (14:33→20:48)
[2021-03-11 20:00] VITALS: BP 147/65
[2021-03-11] MEDS ORDERED: LEVEMIR (INSULIN DETEMIR) 1 UNITS/0.01ML SC SCH (21:00)
[2021-03-12] VITALS: BP 153/74
[2021-03-12 03:50] VITALS: BP 134/60
[2021-03-12] MEDS: ENOXAPARIN 60MG/0.6ML SYRINGE (J1650 PER 10MG) SC SCH (05:46)
[2021-03-12] MEDS: HumaLOG INSULIN (NovoLOG) PER UNIT SC SCH ×4 (07:30→21:00)
[2021-03-12] MEDS: ESCITALOPRAM OXALATE 5MG TABLET (LEXAPRO) PO SCH (09:55)
[2021-03-12] MEDS: BENZONATATE 100MG CAPSULE PO SCH ×3 (09:56→21:04)
[2021-03-12] MEDS: predniSONE 10 MG TAB PO SCH (09:56)
[2021-03-12] MEDS: LEVEMIR (INSULIN DETEMIR) 1 UNITS/0.01ML SC SCH (09:56)
[2021-03-12] MEDS: SODIUM CHLORIDE NASAL 0.65% SPRAY BTL (OCEAN) SCH ×4 (09:57→21:04)
[2021-03-12 10:00] VITALS: BP 138/69
[2021-03-12] MEDS ORDERED: FUROSEMIDE 40MG/4ML VIAL (J1940) IV ONE (11:50)
[2021-03-12] MEDS ORDERED: PANTOPRAZOLE 40MG TAB (PROTONIX) PO ONE (11:55)
[2021-03-12 12:00] VITALS: BP 135/60
[2021-03-12 16:00] VITALS: BP 102/51
[2021-03-12 20:00] VITALS: BP 113/52
[2021-03-12] MEDS ORDERED: LEVEMIR (INSULIN DETEMIR) 1 UNITS/0.01ML SC SCH (21:00)
[2021-03-12] MEDS: PANTOPRAZOLE 40MG TAB (PROTONIX) PO SCH (21:04)
[2021-03-13] VITALS: BP 148/70
[2021-03-13 04:00] VITALS: BP 131/65
[2021-03-13 04:58] LABS: HEMATOCRIT 34.4 % (42.0-52.0); HEMOGLOBIN 10.9 g/dl (13.5-17.5); MEAN CORPUSCULAR HGB CONC 31.7 g/dl (32.0-36.5); MEAN CORPUSCULAR VOLUME 82.1 fl (80.0-96.0); PLATELET COUNT, AUTOMATED 219 10^3/uL (150-450); RED BLOOD COUNT 4.19 10^6/uL (4.30-6.10); WHITE BLOOD COUNT 11.7 10^3/uL (4.0-10.0)
[2021-03-13 05:17] LABS: BLOOD UREA NITROGEN 29 MG/DL (7-18); CALCIUM LEVEL 8.1 MG/DL (8.8-10.2); CARBON DIOXIDE LEVEL 31 MEQ/L (21-32); CHLORIDE LEVEL 103 MEQ/L (98-107); CREATININE FOR GFR 0.86 MG/DL (0.70-1.30); GLOMERULAR FILTRATION RATE > 60.0 (>49); GLUCOSE, FASTING 129 MG/DL (70-100); POTASSIUM SERUM 4.1 MEQ/L (3.5-5.1); SODIUM LEVEL 141 MEQ/L (136-145)
[2021-03-13 05:36] LABS: ANISOCYTOSIS 1+; EOSINOPHILS 1 % (0-3); HYPOCHROMASIA 1+; LYMPHOCYTES 64 % (16-44); MONOCYTES 1 % (0-5); NEUTROPHILS 34 % (28-66); PLATELET ESTIMATE NORMAL (NORMAL)
[2021-03-13] MEDS: ENOXAPARIN 60MG/0.6ML SYRINGE (J1650 PER 10MG) SC SCH (06:39)
[2021-03-13 08:00] VITALS: BP 129/63
[2021-03-13] MEDS: ESCITALOPRAM OXALATE 5MG TABLET (LEXAPRO) PO SCH (08:08)
[2021-03-13] MEDS: predniSONE 10 MG TAB PO SCH (08:08)
[2021-03-13] MEDS: PANTOPRAZOLE 40MG TAB (PROTONIX) PO SCH ×2 (08:09→20:14)
[2021-03-13] MEDS: BENZONATATE 100MG CAPSULE PO SCH ×3 (08:09→20:14)
[2021-03-13] MEDS: FUROSEMIDE 40MG/4ML VIAL (J1940) IV SCH (08:10)
[2021-03-13] MEDS: SODIUM CHLORIDE NASAL 0.65% SPRAY BTL (OCEAN) SCH ×4 (08:10→20:14)
[2021-03-13] MEDS: LEVEMIR (INSULIN DETEMIR) 1 UNITS/0.01ML SC SCH (08:11)
[2021-03-13] MEDS: HumaLOG INSULIN (NovoLOG) PER UNIT SC SCH ×4 (08:11→20:14)
[2021-03-13 12:00] VITALS: BP 115/54
[2021-03-13 16:00] VITALS: BP 142/65
[2021-03-13 20:00] VITALS: BP 150/87
[2021-03-14] VITALS (7 sets, daily range): BP systolic 94–146; BP diastolic 50–65
[2021-03-14 04:56] LABS: BASO % 0.2 % (0.0-1.0); EOS # 0.3 10^3/uL (0.0-0.5); HEMATOCRIT 36.1 % (42.0-52.0); HEMOGLOBIN 11.4 g/dl (13.5-17.5); LYMPH # 8.3 10^3/uL (1.5-5.0); LYMPH % 66.5 % (24.0-44.0); MEAN CORPUSCULAR HEMOGLOBIN 25.6 pg (27.0-33.0); MEAN CORPUSCULAR HGB CONC 31.6 g/dl (32.0-36.5); MEAN CORPUSCULAR VOLUME 81.1 fl (80.0-96.0); MONO # 0.4 10^3/uL (0.0-0.8); MONO % 3.5 % (2.0-8.0); NEUTROPHILS # 3.4 10^3/uL (1.5-8.5); NEUTROPHILS % 27.5 % (36.0-66.0); PLATELET COUNT, AUTOMATED 221 10^3/uL (150-450); RED BLOOD COUNT 4.45 10^6/uL (4.30-6.10); WHITE BLOOD COUNT 12.4 10^3/uL (4.0-10.0)
[2021-03-14] MEDS: ENOXAPARIN 60MG/0.6ML SYRINGE (J1650 PER 10MG) SC SCH (05:02)
[2021-03-14 05:20] LABS: BLOOD UREA NITROGEN 26 MG/DL (7-18); CARBON DIOXIDE LEVEL 31 MEQ/L (21-32); CHLORIDE LEVEL 105 MEQ/L (98-107); CREATININE FOR GFR 0.74 MG/DL (0.70-1.30); GLOMERULAR FILTRATION RATE > 60.0 (>49); GLUCOSE, FASTING 124 MG/DL (70-100); POTASSIUM SERUM 3.6 MEQ/L (3.5-5.1); SODIUM LEVEL 139 MEQ/L (136-145)
[2021-03-14] MEDS: LEVEMIR (INSULIN DETEMIR) 1 UNITS/0.01ML SC SCH (08:32)
[2021-03-14] MEDS: PANTOPRAZOLE 40MG TAB (PROTONIX) PO SCH ×2 (08:33→20:23)
[2021-03-14] MEDS: ESCITALOPRAM OXALATE 5MG TABLET (LEXAPRO) PO SCH (08:33)
[2021-03-14] MEDS: predniSONE 10 MG TAB PO SCH (08:33)
[2021-03-14] MEDS: HumaLOG INSULIN (NovoLOG) PER UNIT SC SCH ×4 (08:33→20:28)
[2021-03-14] MEDS: SODIUM CHLORIDE NASAL 0.65% SPRAY BTL (OCEAN) SCH ×4 (08:33→20:28)
[2021-03-14] MEDS: BENZONATATE 100MG CAPSULE PO SCH ×3 (08:33→20:23)
[2021-03-14] MEDS: FUROSEMIDE 40MG/4ML VIAL (J1940) IV SCH (08:35)
[2021-03-15] VITALS (7 sets, daily range): BP systolic 120–139; BP diastolic 53–71
[2021-03-15] MEDS: ENOXAPARIN 60MG/0.6ML SYRINGE (J1650 PER 10MG) SC SCH (05:15)
[2021-03-15 05:46] LABS: BASO % 0.1 % (0.0-1.0); EOS # 0.1 10^3/uL (0.0-0.5); EOS % 1.3 % (0.0-3.0); HEMATOCRIT 33.9 % (42.0-52.0); HEMOGLOBIN 10.9 g/dl (13.5-17.5); LYMPH # 7.6 10^3/uL (1.5-5.0); LYMPH % 68.3 % (24.0-44.0); MEAN CORPUSCULAR HEMOGLOBIN 26.4 pg (27.0-33.0); MEAN CORPUSCULAR HGB CONC 32.2 g/dl (32.0-36.5); MEAN CORPUSCULAR VOLUME 82.1 fl (80.0-96.0); MONO # 0.4 10^3/uL (0.0-0.8); MONO % 3.5 % (2.0-8.0); NEUTROPHILS % 26.5 % (36.0-66.0); PLATELET COUNT, AUTOMATED 219 10^3/uL (150-450); RED BLOOD COUNT 4.13 10^6/uL (4.30-6.10); WHITE BLOOD COUNT 11.1 10^3/uL (4.0-10.0)
[2021-03-15 06:03] LABS: BLOOD UREA NITROGEN 26 MG/DL (7-18); CALCIUM LEVEL 7.9 MG/DL (8.8-10.2); CARBON DIOXIDE LEVEL 29 MEQ/L (21-32); CHLORIDE LEVEL 105 MEQ/L (98-107); CREATININE FOR GFR 0.75 MG/DL (0.70-1.30); GLOMERULAR FILTRATION RATE > 60.0 (>49); GLUCOSE, FASTING 123 MG/DL (70-100); POTASSIUM SERUM 3.8 MEQ/L (3.5-5.1); SODIUM LEVEL 142 MEQ/L (136-145)
[2021-03-15] MEDS: LEVEMIR (INSULIN DETEMIR) 1 UNITS/0.01ML SC SCH (09:07)
[2021-03-15] MEDS: HumaLOG INSULIN (NovoLOG) PER UNIT SC SCH ×4 (09:07→20:44)
[2021-03-15] MEDS: PANTOPRAZOLE 40MG TAB (PROTONIX) PO SCH ×2 (09:08→20:43)
[2021-03-15] MEDS: predniSONE 10 MG TAB PO SCH (09:08)
[2021-03-15] MEDS: ESCITALOPRAM OXALATE 5MG TABLET (LEXAPRO) PO SCH (09:09)
[2021-03-15] MEDS: FUROSEMIDE 40MG/4ML VIAL (J1940) IV SCH (09:10)
[2021-03-15] MEDS: SODIUM CHLORIDE NASAL 0.65% SPRAY BTL (OCEAN) SCH ×4 (09:10→20:49)
[2021-03-15] MEDS: BENZONATATE 100MG CAPSULE PO SCH ×3 (09:10→20:43)
[2021-03-15] MEDS: MIRALAX *UNIT DOSE* 17GM PACKET PO SCH (16:10)
[2021-03-15] MEDS: SENOKOT S TAB PO SCH (20:43)
[2021-03-16] VITALS: BP 127/58
[2021-03-16 04:00] VITALS: BP 126/58
[2021-03-16 04:41] LABS: BASO % 0.1 % (0.0-1.0); EOS # 0.1 10^3/uL (0.0-0.5); EOS % 0.8 % (0.0-3.0); HEMATOCRIT 32.8 % (42.0-52.0); HEMOGLOBIN 10.4 g/dl (13.5-17.5); LYMPH # 7.4 10^3/uL (1.5-5.0); LYMPH % 68.5 % (24.0-44.0); MEAN CORPUSCULAR HEMOGLOBIN 26.1 pg (27.0-33.0); MEAN CORPUSCULAR HGB CONC 31.7 g/dl (32.0-36.5); MEAN CORPUSCULAR VOLUME 82.2 fl (80.0-96.0); MONO # 0.5 10^3/uL (0.0-0.8); MONO % 4.4 % (2.0-8.0); NEUTROPHILS # 2.8 10^3/uL (1.5-8.5); NEUTROPHILS % 25.9 % (36.0-66.0); PLATELET COUNT, AUTOMATED 211 10^3/uL (150-450); RED BLOOD COUNT 3.99 10^6/uL (4.30-6.10); WHITE BLOOD COUNT 10.8 10^3/uL (4.0-10.0)
[2021-03-16 05:09] LABS: ALBUMIN 2.7 GM/DL (3.2-5.2); ALT/SGPT 66 U/L (12-78); BILIRUBIN,DIRECT < 0.1 MG/DL (0.0-0.2); BILIRUBIN,TOTAL 0.2 MG/DL (0.2-1.0); BLOOD UREA NITROGEN 25 MG/DL (7-18); CALCIUM LEVEL 7.6 MG/DL (8.8-10.2); CARBON DIOXIDE LEVEL 31 MEQ/L (21-32); CHLORIDE LEVEL 106 MEQ/L (98-107); CREATININE FOR GFR 0.75 MG/DL (0.70-1.30); GLOMERULAR FILTRATION RATE > 60.0 (>49); GLUCOSE, FASTING 138 MG/DL (70-100); POTASSIUM SERUM 3.9 MEQ/L (3.5-5.1); SODIUM LEVEL 142 MEQ/L (136-145); TOTAL PROTEIN 5.8 GM/DL (6.4-8.2)
[2021-03-16 08:17] VITALS: BP 169/76
[2021-03-16] MEDS: BENZONATATE 100MG CAPSULE PO SCH ×3 (08:17→20:56)
[2021-03-16] MEDS: ESCITALOPRAM OXALATE 5MG TABLET (LEXAPRO) PO SCH (08:17)
[2021-03-16] MEDS: MIRALAX *UNIT DOSE* 17GM PACKET PO SCH (08:17)
[2021-03-16] MEDS: SENOKOT S TAB PO SCH ×2 (08:17→20:56)
[2021-03-16] MEDS: PANTOPRAZOLE 40MG TAB (PROTONIX) PO SCH ×2 (08:17→20:56)
[2021-03-16] MEDS: predniSONE 10 MG TAB PO SCH (08:17)
[2021-03-16] MEDS: ENOXAPARIN 40MG/0.4ML SYRINGE (J1650 PER 10MG) SC SCH (08:17)
[2021-03-16] MEDS: FUROSEMIDE 40MG/4ML VIAL (J1940) IV SCH (08:18)
[2021-03-16] MEDS: LEVEMIR (INSULIN DETEMIR) 1 UNITS/0.01ML SC SCH (08:18)
[2021-03-16] MEDS: HumaLOG INSULIN (NovoLOG) PER UNIT SC SCH ×4 (08:19→20:56)
[2021-03-16] MEDS: SODIUM CHLORIDE NASAL 0.65% SPRAY BTL (OCEAN) SCH ×4 (08:19→20:57)
[2021-03-16 11:56] VITALS: BP 133/61
[2021-03-16 20:00] VITALS: BP 162/72
[2021-03-17] VITALS: BP 166/77
[2021-03-17 04:00] VITALS: BP 145/79
[2021-03-17 04:58] LABS: BASO % 0.2 % (0.0-1.0); EOS # 0.2 10^3/uL (0.0-0.5); EOS % 1.6 % (0.0-3.0); HEMATOCRIT 34.7 % (42.0-52.0); HEMOGLOBIN 10.9 g/dl (13.5-17.5); LYMPH # 9.5 10^3/uL (1.5-5.0); MEAN CORPUSCULAR HEMOGLOBIN 25.8 pg (27.0-33.0); MEAN CORPUSCULAR HGB CONC 31.4 g/dl (32.0-36.5); MONO # 0.5 10^3/uL (0.0-0.8); MONO % 3.5 % (2.0-8.0); NEUTROPHILS # 2.9 10^3/uL (1.5-8.5); NEUTROPHILS % 22.3 % (36.0-66.0); PLATELET COUNT, AUTOMATED 207 10^3/uL (150-450); RED BLOOD COUNT 4.23 10^6/uL (4.30-6.10); WHITE BLOOD COUNT 13.1 10^3/uL (4.0-10.0)
[2021-03-17 05:17] LABS: BLOOD UREA NITROGEN 22 MG/DL (7-18); CALCIUM LEVEL 7.9 MG/DL (8.8-10.2); CARBON DIOXIDE LEVEL 32 MEQ/L (21-32); CHLORIDE LEVEL 105 MEQ/L (98-107); CREATININE FOR GFR 0.73 MG/DL (0.70-1.30); GLOMERULAR FILTRATION RATE > 60.0 (>49); GLUCOSE, FASTING 114 MG/DL (70-100); POTASSIUM SERUM 3.8 MEQ/L (3.5-5.1); SODIUM LEVEL 142 MEQ/L (136-145)
[2021-03-17] MEDS: SENOKOT S TAB PO SCH ×2 (09:00→20:20)
[2021-03-17] MEDS: MIRALAX *UNIT DOSE* 17GM PACKET PO SCH (09:00)
[2021-03-17] MEDS: HumaLOG INSULIN (NovoLOG) PER UNIT SC SCH ×4 (09:22→20:19)
[2021-03-17 10:00] VITALS: BP 138/59
[2021-03-17] MEDS: ENOXAPARIN 40MG/0.4ML SYRINGE (J1650 PER 10MG) SC SCH (10:06)
[2021-03-17] MEDS: LEVEMIR (INSULIN DETEMIR) 1 UNITS/0.01ML SC SCH (10:06)
[2021-03-17] MEDS: predniSONE 10 MG TAB PO SCH (10:07)
[2021-03-17] MEDS: BENZONATATE 100MG CAPSULE PO SCH ×3 (10:09→20:15)
[2021-03-17] MEDS: PANTOPRAZOLE 40MG TAB (PROTONIX) PO SCH ×2 (10:11→20:14)
[2021-03-17] MEDS: FUROSEMIDE 40MG/4ML VIAL (J1940) IV SCH (10:11)
[2021-03-17] MEDS: ESCITALOPRAM OXALATE 5MG TABLET (LEXAPRO) PO SCH (10:11)
[2021-03-17] MEDS: SODIUM CHLORIDE NASAL 0.65% SPRAY BTL (OCEAN) SCH ×4 (10:12→20:20)
[2021-03-17 13:00] VITALS: BP 149/69
[2021-03-17 18:00] VITALS: BP 147/65
[2021-03-17 20:00] VITALS: BP 147/67
[2021-03-17] MEDS: guaiFENesin SYRUP 200MG 10ML UDC PO PRN (21:44)
[2021-03-18] VITALS: BP 109/67
[2021-03-18 04:00] VITALS: BP 139/85
[2021-03-18 05:05] LABS: BASO % 0.1 % (0.0-1.0); EOS # 0.2 10^3/uL (0.0-0.5); EOS % 1.4 % (0.0-3.0); HEMATOCRIT 33.8 % (42.0-52.0); HEMOGLOBIN 10.9 g/dl (13.5-17.5); LYMPH # 10.3 10^3/uL (1.5-5.0); LYMPH % 70.3 % (24.0-44.0); MEAN CORPUSCULAR HEMOGLOBIN 26.6 pg (27.0-33.0); MEAN CORPUSCULAR HGB CONC 32.2 g/dl (32.0-36.5); MEAN CORPUSCULAR VOLUME 82.4 fl (80.0-96.0); MONO # 0.5 10^3/uL (0.0-0.8); MONO % 3.6 % (2.0-8.0); NEUTROPHILS # 3.5 10^3/uL (1.5-8.5); NEUTROPHILS % 24.3 % (36.0-66.0); PLATELET COUNT, AUTOMATED 191 10^3/uL (150-450); WHITE BLOOD COUNT 14.6 10^3/uL (4.0-10.0)
[2021-03-18 05:28] LABS: BLOOD UREA NITROGEN 23 MG/DL (7-18); CALCIUM LEVEL 8.2 MG/DL (8.8-10.2); CARBON DIOXIDE LEVEL 31 MEQ/L (21-32); CHLORIDE LEVEL 104 MEQ/L (98-107); CREATININE FOR GFR 0.72 MG/DL (0.70-1.30); FERRITIN 287 NG/ML (26-388); GLOMERULAR FILTRATION RATE > 60.0 (>49); GLUCOSE, FASTING 128 MG/DL (70-100); POTASSIUM SERUM 3.7 MEQ/L (3.5-5.1); SODIUM LEVEL 140 MEQ/L (136-145)
[2021-03-18 08:00] VITALS: BP 148/71
[2021-03-18] MEDS: predniSONE 10 MG TAB PO SCH (08:22)
[2021-03-18] MEDS: BENZONATATE 100MG CAPSULE PO SCH ×3 (08:22→20:04)
[2021-03-18] MEDS: SENOKOT S TAB PO SCH ×3 (08:23→20:09)
[2021-03-18] MEDS: LEVEMIR (INSULIN DETEMIR) 1 UNITS/0.01ML SC SCH (08:23)
[2021-03-18] MEDS: MIRALAX *UNIT DOSE* 17GM PACKET PO SCH (08:24)
[2021-03-18] MEDS: PANTOPRAZOLE 40MG TAB (PROTONIX) PO SCH ×2 (08:24→20:05)
[2021-03-18] MEDS: ENOXAPARIN 40MG/0.4ML SYRINGE (J1650 PER 10MG) SC SCH (08:24)
[2021-03-18] MEDS: HumaLOG INSULIN (NovoLOG) PER UNIT SC SCH ×4 (08:24→20:06)
[2021-03-18] MEDS: SODIUM CHLORIDE NASAL 0.65% SPRAY BTL (OCEAN) SCH ×4 (08:25→20:06)
[2021-03-18] MEDS: FUROSEMIDE 40MG/4ML VIAL (J1940) IV SCH (08:25)
[2021-03-18] MEDS: ESCITALOPRAM OXALATE 5MG TABLET (LEXAPRO) PO SCH (09:52)
[2021-03-18 12:00] VITALS: BP 150/64
[2021-03-18 16:00] VITALS: BP 138/54
[2021-03-18] MEDS: guaiFENesin SYRUP 200MG 10ML UDC PO PRN (20:05)
[2021-03-18 22:00] VITALS: BP 150/64
[2021-03-19 05:00] VITALS: BP 153/80
[2021-03-19 06:00] LABS: HEMATOCRIT 33.9 % (42.0-52.0); HEMOGLOBIN 10.7 g/dl (13.5-17.5); MEAN CORPUSCULAR HEMOGLOBIN 26.5 pg (27.0-33.0); MEAN CORPUSCULAR HGB CONC 31.6 g/dl (32.0-36.5); MEAN CORPUSCULAR VOLUME 83.9 fl (80.0-96.0); PLATELET COUNT, AUTOMATED 186 10^3/uL (150-450); RED BLOOD COUNT 4.04 10^6/uL (4.30-6.10); WHITE BLOOD COUNT 13.4 10^3/uL (4.0-10.0)
[2021-03-19 06:18] LABS: BLOOD UREA NITROGEN 22 MG/DL (7-18); CALCIUM LEVEL 8.2 MG/DL (8.8-10.2); CARBON DIOXIDE LEVEL 30 MEQ/L (21-32); CHLORIDE LEVEL 106 MEQ/L (98-107); CREATININE FOR GFR 0.76 MG/DL (0.70-1.30); GLOMERULAR FILTRATION RATE > 60.0 (>49); GLUCOSE, FASTING 132 MG/DL (70-100); POTASSIUM SERUM 3.7 MEQ/L (3.5-5.1); SODIUM LEVEL 141 MEQ/L (136-145)
[2021-03-19 07:08] LABS: ANISOCYTOSIS 1+; ATYPICAL LYMPH 2 % (0-5); EOSINOPHILS 3 % (0-3); LYMPHOCYTES 71 % (16-44); MONOCYTES 3 % (0-5); NEUTROPHILS 21 % (28-66); PLATELET ESTIMATE NORMAL (NORMAL); SMUDGE CELLS 2+
[2021-03-19 08:00] VITALS: BP 130/68
[2021-03-19] MEDS: ENOXAPARIN 40MG/0.4ML SYRINGE (J1650 PER 10MG) SC SCH (08:22)
[2021-03-19] MEDS: BENZONATATE 100MG CAPSULE PO SCH ×3 (08:23→20:37)
[2021-03-19] MEDS: PANTOPRAZOLE 40MG TAB (PROTONIX) PO SCH ×2 (08:23→20:37)
[2021-03-19] MEDS: predniSONE 10 MG TAB PO SCH (08:25)
[2021-03-19] MEDS: LEVEMIR (INSULIN DETEMIR) 1 UNITS/0.01ML SC SCH (08:27)
[2021-03-19] MEDS: ESCITALOPRAM OXALATE 5MG TABLET (LEXAPRO) PO SCH (08:29)
[2021-03-19] MEDS: SENOKOT S TAB PO SCH ×2 (08:30→20:37)
[2021-03-19] MEDS: HumaLOG INSULIN (NovoLOG) PER UNIT SC SCH ×4 (08:30→20:36)
[2021-03-19] MEDS: SODIUM CHLORIDE NASAL 0.65% SPRAY BTL (OCEAN) SCH ×4 (08:31→20:37)
[2021-03-19 12:00] VITALS: BP 138/58
[2021-03-19] MEDS: FUROSEMIDE 40 MG TAB PO SCH (12:36)
[2021-03-19 16:00] VITALS: BP 138/66
[2021-03-19 19:37] VITALS: BP 140/50
[2021-03-19] MEDS: guaiFENesin SYRUP 200MG 10ML UDC PO PRN (21:57)
[2021-03-20] VITALS (16 sets, daily range): BP systolic 140–165; BP diastolic 70–76; O2SAT 83–100
[2021-03-20] MEDS: HumaLOG INSULIN (NovoLOG) PER UNIT SC SCH ×4 (07:30→21:00)
[2021-03-20] MEDS: SENOKOT S TAB PO SCH ×2 (08:40→20:36)
[2021-03-20] MEDS: BENZONATATE 100MG CAPSULE PO SCH ×3 (08:40→21:12)
[2021-03-20] MEDS: PANTOPRAZOLE 40MG TAB (PROTONIX) PO SCH ×2 (08:41→21:12)
[2021-03-20] MEDS: predniSONE 10 MG TAB PO SCH (08:41)
[2021-03-20] MEDS: FUROSEMIDE 40 MG TAB PO SCH (08:41)
[2021-03-20] MEDS: SODIUM CHLORIDE NASAL 0.65% SPRAY BTL (OCEAN) SCH ×4 (08:42→21:12)
[2021-03-20] MEDS: ENOXAPARIN 40MG/0.4ML SYRINGE (J1650 PER 10MG) SC SCH (08:42)
[2021-03-20] MEDS: LEVEMIR (INSULIN DETEMIR) 1 UNITS/0.01ML SC SCH (08:42)
[2021-03-20 09:03] LABS: HEMATOCRIT 35.1 % (42.0-52.0); HEMOGLOBIN 11.2 g/dl (13.5-17.5); MEAN CORPUSCULAR HEMOGLOBIN 26.7 pg (27.0-33.0); MEAN CORPUSCULAR HGB CONC 31.9 g/dl (32.0-36.5); MEAN CORPUSCULAR VOLUME 83.6 fl (80.0-96.0); PLATELET COUNT, AUTOMATED 175 10^3/uL (150-450); WHITE BLOOD COUNT 13.3 10^3/uL (4.0-10.0)
[2021-03-20 09:35] LABS: BLOOD UREA NITROGEN 21 MG/DL (7-18); CALCIUM LEVEL 8.5 MG/DL (8.8-10.2); CARBON DIOXIDE LEVEL 31 MEQ/L (21-32); CHLORIDE LEVEL 106 MEQ/L (98-107); CREATININE FOR GFR 0.81 MG/DL (0.70-1.30); GLOMERULAR FILTRATION RATE > 60.0 (>49); GLUCOSE, FASTING 128 MG/DL (70-100); POTASSIUM SERUM 3.8 MEQ/L (3.5-5.1); SODIUM LEVEL 142 MEQ/L (136-145)
[2021-03-20] MEDS: guaiFENesin SYRUP 200MG 10ML UDC PO PRN (21:12)
[2021-03-21 06:00] VITALS: BP 112/60
[2021-03-21 06:36] LABS: HEMATOCRIT 34.3 % (42.0-52.0); HEMOGLOBIN 10.7 g/dl (13.5-17.5); MEAN CORPUSCULAR HEMOGLOBIN 26.4 pg (27.0-33.0); MEAN CORPUSCULAR HGB CONC 31.2 g/dl (32.0-36.5); MEAN CORPUSCULAR VOLUME 84.5 fl (80.0-96.0); PLATELET COUNT, AUTOMATED 163 10^3/uL (150-450); RED BLOOD COUNT 4.06 10^6/uL (4.30-6.10); WHITE BLOOD COUNT 13.7 10^3/uL (4.0-10.0)
[2021-03-21 06:53] LABS: BLOOD UREA NITROGEN 22 MG/DL (7-18); CALCIUM LEVEL 8.5 MG/DL (8.8-10.2); CARBON DIOXIDE LEVEL 30 MEQ/L (21-32); CHLORIDE LEVEL 105 MEQ/L (98-107); GLOMERULAR FILTRATION RATE > 60.0 (>49); GLUCOSE, FASTING 122 MG/DL (70-100); POTASSIUM SERUM 3.7 MEQ/L (3.5-5.1); SODIUM LEVEL 141 MEQ/L (136-145)
[2021-03-21] MEDS: HumaLOG INSULIN (NovoLOG) PER UNIT SC SCH ×4 (07:48→20:53)
[2021-03-21] MEDS: BENZONATATE 100MG CAPSULE PO SCH ×3 (08:22→20:52)
[2021-03-21] MEDS: predniSONE 10 MG TAB PO SCH (08:23)
[2021-03-21] MEDS: LEVEMIR (INSULIN DETEMIR) 1 UNITS/0.01ML SC SCH (08:24)
[2021-03-21] MEDS: ENOXAPARIN 40MG/0.4ML SYRINGE (J1650 PER 10MG) SC SCH (08:24)
[2021-03-21] MEDS: FUROSEMIDE 40 MG TAB PO SCH (08:24)
[2021-03-21] MEDS: PANTOPRAZOLE 40MG TAB (PROTONIX) PO SCH ×2 (08:24→20:52)
[2021-03-21] MEDS: SENOKOT S TAB PO SCH ×2 (09:00→20:52)
[2021-03-21] MEDS: SODIUM CHLORIDE NASAL 0.65% SPRAY BTL (OCEAN) SCH ×4 (09:08→22:01)
[2021-03-21] MEDS ORDERED: ISOVUE-370 76% 100ML VIAL As Ordered ONE (10:40)
[2021-03-21 14:00] VITALS: BP 112/45
[2021-03-21] MEDS ORDERED: methylPREDNISolone 125MG 2ML VIAL IV ONE (15:00)
[2021-03-21] MEDS: guaiFENesin SYRUP 200MG 10ML UDC PO PRN ×2 (15:43→22:02)
[2021-03-21 21:45] VITALS: BP 124/59
[2021-03-22 06:00] VITALS: BP 116/58
[2021-03-22 06:56] LABS: HEMATOCRIT 34.8 % (42.0-52.0); HEMOGLOBIN 10.8 g/dl (13.5-17.5); MEAN CORPUSCULAR HEMOGLOBIN 26.3 pg (27.0-33.0); MEAN CORPUSCULAR VOLUME 84.9 fl (80.0-96.0); PLATELET COUNT, AUTOMATED 166 10^3/uL (150-450); WHITE BLOOD COUNT 15.2 10^3/uL (4.0-10.0)
[2021-03-22 07:29] LABS: BLOOD UREA NITROGEN 22 MG/DL (7-18); CALCIUM LEVEL 8.4 MG/DL (8.8-10.2); CARBON DIOXIDE LEVEL 28 MEQ/L (21-32); CHLORIDE LEVEL 104 MEQ/L (98-107); CREATININE FOR GFR 0.82 MG/DL (0.70-1.30); FERRITIN 226 NG/ML (26-388); GLOMERULAR FILTRATION RATE > 60.0 (>49); GLUCOSE, FASTING 221 MG/DL (70-100); NT-PRO BNP 155 PG/ML (<125); POTASSIUM SERUM 4.5 MEQ/L (3.5-5.1); SODIUM LEVEL 140 MEQ/L (136-145)
[2021-03-22] MEDS: HumaLOG INSULIN (NovoLOG) PER UNIT SC SCH ×4 (07:44→21:42)
[2021-03-22] MEDS: BENZONATATE 100MG CAPSULE PO SCH ×3 (08:13→21:41)
[2021-03-22] MEDS: SENOKOT S TAB PO SCH ×2 (08:13→21:00)
[2021-03-22] MEDS: predniSONE 10 MG TAB PO SCH (08:13)
[2021-03-22] MEDS: PANTOPRAZOLE 40MG TAB (PROTONIX) PO SCH ×2 (08:14→21:41)
[2021-03-22] MEDS: FUROSEMIDE 40 MG TAB PO SCH (08:14)
[2021-03-22] MEDS: LEVEMIR (INSULIN DETEMIR) 1 UNITS/0.01ML SC SCH (08:14)
[2021-03-22] MEDS: ENOXAPARIN 40MG/0.4ML SYRINGE (J1650 PER 10MG) SC SCH (08:15)
[2021-03-22] MEDS: SODIUM CHLORIDE NASAL 0.65% SPRAY BTL (OCEAN) SCH ×4 (08:15→21:42)
[2021-03-22] MEDS ORDERED: FUROSEMIDE 40MG/4ML VIAL (J1940) IV ONE (09:35)
[2021-03-22] MEDS: guaiFENesin SYRUP 200MG 10ML UDC PO PRN ×2 (10:11→21:41)
[2021-03-22 14:00] VITALS: BP 121/57
[2021-03-22 22:00] VITALS: BP 121/61
[2021-03-23 05:51] LABS: HEMATOCRIT 32.4 % (42.0-52.0); HEMOGLOBIN 10.4 g/dl (13.5-17.5); MEAN CORPUSCULAR HEMOGLOBIN 26.6 pg (27.0-33.0); MEAN CORPUSCULAR HGB CONC 32.1 g/dl (32.0-36.5); MEAN CORPUSCULAR VOLUME 82.9 fl (80.0-96.0); PLATELET COUNT, AUTOMATED 150 10^3/uL (150-450); RED BLOOD COUNT 3.91 10^6/uL (4.30-6.10); WHITE BLOOD COUNT 14.1 10^3/uL (4.0-10.0)
[2021-03-23 06:00] VITALS: BP 138/66
[2021-03-23 06:09] LABS: BLOOD UREA NITROGEN 25 MG/DL (7-18); CALCIUM LEVEL 8.2 MG/DL (8.8-10.2); CARBON DIOXIDE LEVEL 32 MEQ/L (21-32); CHLORIDE LEVEL 103 MEQ/L (98-107); CREATININE FOR GFR 0.84 MG/DL (0.70-1.30); GLOMERULAR FILTRATION RATE > 60.0 (>49); GLUCOSE, FASTING 130 MG/DL (70-100); POTASSIUM SERUM 3.9 MEQ/L (3.5-5.1); SODIUM LEVEL 140 MEQ/L (136-145)
[2021-03-23 08:13] LABS: NT-PRO BNP 107 PG/ML (<125)
[2021-03-23] MEDS: predniSONE 10 MG TAB PO SCH (09:17)
[2021-03-23] MEDS: SODIUM CHLORIDE NASAL 0.65% SPRAY BTL (OCEAN) SCH ×4 (09:17→21:40)
[2021-03-23] MEDS: SENOKOT S TAB PO SCH ×2 (09:18→21:40)
[2021-03-23] MEDS: BENZONATATE 100MG CAPSULE PO SCH ×3 (09:18→21:40)
[2021-03-23] MEDS: PANTOPRAZOLE 40MG TAB (PROTONIX) PO SCH ×2 (09:18→21:40)
[2021-03-23] MEDS: HumaLOG INSULIN (NovoLOG) PER UNIT SC SCH ×4 (09:18→21:41)
[2021-03-23] MEDS: FUROSEMIDE 40 MG TAB PO SCH (09:18)
[2021-03-23] MEDS: LEVEMIR (INSULIN DETEMIR) 1 UNITS/0.01ML SC SCH (09:19)
[2021-03-23] MEDS: ENOXAPARIN 40MG/0.4ML SYRINGE (J1650 PER 10MG) SC SCH (09:19)
[2021-03-23] MEDS: guaiFENesin SYRUP 200MG 10ML UDC PO PRN (09:26)
[2021-03-23] MEDS: FUROSEMIDE 40MG/4ML VIAL (J1940) IV SCH (10:41)
[2021-03-23 14:00] VITALS: BP 137/52
[2021-03-23 22:00] VITALS: BP 139/60
[2021-03-24 06:00] VITALS: BP 131/68
[2021-03-24 06:38] LABS: HEMATOCRIT 33.3 % (42.0-52.0); HEMOGLOBIN 10.3 g/dl (13.5-17.5); MEAN CORPUSCULAR HEMOGLOBIN 26.1 pg (27.0-33.0); MEAN CORPUSCULAR HGB CONC 30.9 g/dl (32.0-36.5); MEAN CORPUSCULAR VOLUME 84.3 fl (80.0-96.0); PLATELET COUNT, AUTOMATED 148 10^3/uL (150-450); RED BLOOD COUNT 3.95 10^6/uL (4.30-6.10)
[2021-03-24 07:00] LABS: BLOOD UREA NITROGEN 22 MG/DL (7-18); CALCIUM LEVEL 8.4 MG/DL (8.8-10.2); CARBON DIOXIDE LEVEL 35 MEQ/L (21-32); CHLORIDE LEVEL 100 MEQ/L (98-107); GLOMERULAR FILTRATION RATE > 60.0 (>49); GLUCOSE, FASTING 121 MG/DL (70-100); SODIUM LEVEL 138 MEQ/L (136-145)
[2021-03-24] MEDS: FUROSEMIDE 40MG/4ML VIAL (J1940) IV SCH (08:14)
[2021-03-24] MEDS: ENOXAPARIN 40MG/0.4ML SYRINGE (J1650 PER 10MG) SC SCH (08:15)
[2021-03-24] MEDS: predniSONE 10 MG TAB PO SCH (08:15)
[2021-03-24] MEDS: BENZONATATE 100MG CAPSULE PO SCH ×3 (08:15→22:06)
[2021-03-24] MEDS: PANTOPRAZOLE 40MG TAB (PROTONIX) PO SCH ×2 (08:15→22:06)
[2021-03-24] MEDS: SENOKOT S TAB PO SCH ×2 (08:15→22:06)
[2021-03-24] MEDS: LEVEMIR (INSULIN DETEMIR) 1 UNITS/0.01ML SC SCH (08:16)
[2021-03-24] MEDS: SODIUM CHLORIDE NASAL 0.65% SPRAY BTL (OCEAN) SCH ×4 (08:16→22:07)
[2021-03-24] MEDS: HumaLOG INSULIN (NovoLOG) PER UNIT SC SCH ×4 (08:16→21:00)
[2021-03-24 14:00] VITALS: BP 110/56
[2021-03-24 21:00] VITALS: BP 131/56
[2021-03-24] MEDS: guaiFENesin SYRUP 200MG 10ML UDC PO PRN (22:09)
[2021-03-25 06:00] VITALS: BP 125/60
[2021-03-25 06:25] LABS: HEMATOCRIT 32.4 % (42.0-52.0); HEMOGLOBIN 10.2 g/dl (13.5-17.5); MEAN CORPUSCULAR HEMOGLOBIN 26.7 pg (27.0-33.0); MEAN CORPUSCULAR HGB CONC 31.5 g/dl (32.0-36.5); MEAN CORPUSCULAR VOLUME 84.8 fl (80.0-96.0); PLATELET COUNT, AUTOMATED 138 10^3/uL (150-450); RED BLOOD COUNT 3.82 10^6/uL (4.30-6.10); WHITE BLOOD COUNT 11.5 10^3/uL (4.0-10.0)
[2021-03-25 06:47] LABS: BLOOD UREA NITROGEN 20 MG/DL (7-18); CALCIUM LEVEL 8.5 MG/DL (8.8-10.2); CARBON DIOXIDE LEVEL 32 MEQ/L (21-32); CHLORIDE LEVEL 102 MEQ/L (98-107); CREATININE FOR GFR 0.79 MG/DL (0.70-1.30); GLOMERULAR FILTRATION RATE > 60.0 (>49); GLUCOSE, FASTING 134 MG/DL (70-100); PHOSPHORUS LEVEL 4.2 MG/DL (2.5-4.9); POTASSIUM SERUM 3.9 MEQ/L (3.5-5.1); SODIUM LEVEL 138 MEQ/L (136-145)
[2021-03-25 07:30] VITALS: BP 123/59
[2021-03-25] MEDS: SENOKOT S TAB PO SCH ×2 (08:12→20:11)
[2021-03-25] MEDS: HumaLOG INSULIN (NovoLOG) PER UNIT SC SCH ×4 (08:12→20:12)
[2021-03-25] MEDS: BENZONATATE 100MG CAPSULE PO SCH ×3 (08:12→20:11)
[2021-03-25] MEDS: PANTOPRAZOLE 40MG TAB (PROTONIX) PO SCH ×2 (08:13→20:11)
[2021-03-25] MEDS: LEVEMIR (INSULIN DETEMIR) 1 UNITS/0.01ML SC SCH (08:13)
[2021-03-25] MEDS: predniSONE 10 MG TAB PO SCH ×2 (08:13→10:27)
[2021-03-25] MEDS: FUROSEMIDE 40MG/4ML VIAL (J1940) IV SCH (08:14)
[2021-03-25] MEDS: ENOXAPARIN 40MG/0.4ML SYRINGE (J1650 PER 10MG) SC SCH (08:14)
[2021-03-25] MEDS: SODIUM CHLORIDE NASAL 0.65% SPRAY BTL (OCEAN) SCH ×4 (09:02→20:12)
[2021-03-25 13:57] VITALS: BP 120/59
[2021-03-25 17:18] LABS: MAGNESIUM LEVEL 1.7 MG/DL (1.7-2.2)
[2021-03-25 20:10] VITALS: O2SAT 98
[2021-03-25 22:00] VITALS: BP 126/62
[2021-03-26 05:25] LABS: HEMATOCRIT 31.2 % (42.0-52.0); HEMOGLOBIN 9.8 g/dl (13.5-17.5); MEAN CORPUSCULAR HEMOGLOBIN 26.5 pg (27.0-33.0); MEAN CORPUSCULAR HGB CONC 31.4 g/dl (32.0-36.5); MEAN CORPUSCULAR VOLUME 84.3 fl (80.0-96.0); PLATELET COUNT, AUTOMATED 153 10^3/uL (150-450); WHITE BLOOD COUNT 11.4 10^3/uL (4.0-10.0)
[2021-03-26 05:48] LABS: BLOOD UREA NITROGEN 20 MG/DL (7-18); CALCIUM LEVEL 8.7 MG/DL (8.8-10.2); CARBON DIOXIDE LEVEL 30 MEQ/L (21-32); CHLORIDE LEVEL 103 MEQ/L (98-107); CREATININE FOR GFR 0.71 MG/DL (0.70-1.30); GLOMERULAR FILTRATION RATE > 60.0 (>49); GLUCOSE, FASTING 143 MG/DL (70-100); POTASSIUM SERUM 4.2 MEQ/L (3.5-5.1); SODIUM LEVEL 138 MEQ/L (136-145)
[2021-03-26 07:50] VITALS: BP 138/52
[2021-03-26] MEDS: HumaLOG INSULIN (NovoLOG) PER UNIT SC SCH ×4 (09:09→20:21)
[2021-03-26] MEDS: BENZONATATE 100MG CAPSULE PO SCH ×4 (09:12→20:44)
[2021-03-26] MEDS: SENOKOT S TAB PO SCH ×3 (09:12→20:44)
[2021-03-26] MEDS: PANTOPRAZOLE 40MG TAB (PROTONIX) PO SCH ×3 (09:13→20:44)
[2021-03-26] MEDS: LEVEMIR (INSULIN DETEMIR) 1 UNITS/0.01ML SC SCH (09:14)
[2021-03-26] MEDS: FUROSEMIDE 40MG/4ML VIAL (J1940) IV SCH (09:14)
[2021-03-26] MEDS: ENOXAPARIN 40MG/0.4ML SYRINGE (J1650 PER 10MG) SC SCH (09:16)
[2021-03-26] MEDS: SODIUM CHLORIDE NASAL 0.65% SPRAY BTL (OCEAN) SCH ×4 (09:16→20:44)
[2021-03-26 10:31] VITALS: BP 138/52
[2021-03-26 11:32] VITALS: BP 120/50
[2021-03-26 14:00] VITALS: BP 136/52
[2021-03-26 20:00] VITALS: BP 113/53
[2021-03-26] MEDS: ACETAMINOPHEN TAB 650MG DOSE (2X325MG) PO PRN (20:06)
[2021-03-26 20:45] VITALS: O2SAT 96
[2021-03-27 06:00] VITALS: BP 127/69
[2021-03-27 07:17] LABS: HEMATOCRIT 31.1 % (42.0-52.0); HEMOGLOBIN 9.9 g/dl (13.5-17.5); MEAN CORPUSCULAR HEMOGLOBIN 26.6 pg (27.0-33.0); MEAN CORPUSCULAR HGB CONC 31.8 g/dl (32.0-36.5); MEAN CORPUSCULAR VOLUME 83.6 fl (80.0-96.0); PLATELET COUNT, AUTOMATED 166 10^3/uL (150-450); RED BLOOD COUNT 3.72 10^6/uL (4.30-6.10); WHITE BLOOD COUNT 9.7 10^3/uL (4.0-10.0)
[2021-03-27 07:43] LABS: BLOOD UREA NITROGEN 17 MG/DL (7-18); CALCIUM LEVEL 8.1 MG/DL (8.8-10.2); CARBON DIOXIDE LEVEL 31 MEQ/L (21-32); CHLORIDE LEVEL 103 MEQ/L (98-107); CREATININE FOR GFR 0.81 MG/DL (0.70-1.30); GLOMERULAR FILTRATION RATE > 60.0 (>49); GLUCOSE, FASTING 153 MG/DL (70-100); POTASSIUM SERUM 4.3 MEQ/L (3.5-5.1); SODIUM LEVEL 140 MEQ/L (136-145)
[2021-03-27] MEDS: LEVEMIR (INSULIN DETEMIR) 1 UNITS/0.01ML SC SCH (08:14)
[2021-03-27] MEDS: HumaLOG INSULIN (NovoLOG) PER UNIT SC SCH ×4 (08:14→21:00)
[2021-03-27] MEDS: FUROSEMIDE 40MG/4ML VIAL (J1940) IV SCH (08:15)
[2021-03-27] MEDS: SENOKOT S TAB PO SCH ×2 (08:15→21:29)
[2021-03-27] MEDS: ENOXAPARIN 40MG/0.4ML SYRINGE (J1650 PER 10MG) SC SCH (08:15)
[2021-03-27] MEDS: PANTOPRAZOLE 40MG TAB (PROTONIX) PO SCH ×2 (08:15→21:29)
[2021-03-27] MEDS: SODIUM CHLORIDE NASAL 0.65% SPRAY BTL (OCEAN) SCH ×4 (08:16→21:31)
[2021-03-27] MEDS: BENZONATATE 100MG CAPSULE PO SCH ×3 (08:16→21:00)
[2021-03-27 14:00] VITALS: BP 127/63
[2021-03-28 04:23] VITALS: O2SAT 94
[2021-03-28 06:00] VITALS: BP 125/67
[2021-03-28] MEDS: SODIUM CHLORIDE NASAL 0.65% SPRAY BTL (OCEAN) SCH ×4 (09:00→20:39)
[2021-03-28] MEDS: BENZONATATE 100MG CAPSULE PO SCH ×3 (09:00→20:38)
[2021-03-28] MEDS: PANTOPRAZOLE 40MG TAB (PROTONIX) PO SCH ×2 (09:01→20:37)
[2021-03-28] MEDS: SENOKOT S TAB PO SCH ×2 (09:02→20:38)
[2021-03-28] MEDS: LEVEMIR (INSULIN DETEMIR) 1 UNITS/0.01ML SC SCH (09:03)
[2021-03-28] MEDS: HumaLOG INSULIN (NovoLOG) PER UNIT SC SCH ×4 (09:04→20:38)
[2021-03-28] MEDS: FUROSEMIDE 40MG/4ML VIAL (J1940) IV SCH (09:05)
[2021-03-28] MEDS: ENOXAPARIN 40MG/0.4ML SYRINGE (J1650 PER 10MG) SC SCH (09:05)
[2021-03-28 14:00] VITALS: BP 120/40
[2021-03-28] MEDS: guaiFENesin SYRUP 200MG 10ML UDC PO PRN (17:07)
[2021-03-28] MEDS: ACETAMINOPHEN TAB 650MG DOSE (2X325MG) PO PRN (17:22)
[2021-03-28] MEDS: AUGMENTIN 875 MG TAB PO SCH (20:37)
[2021-03-28 21:00] VITALS: O2SAT 97
[2021-03-28 22:00] VITALS: BP 99/44
[2021-03-28 23:01] LABS: APPEARANCE, URINE CLOUDY (CLEAR); BACTERIA, URINE AUTO NEGATIVE (NEGATIVE); BILIRUBIN, URINE AUTO NEGATIVE (NEGATIVE); BLOOD, URINE BLOOD NEGATIVE (NEGATIVE); COLOR, URINE AMBER (YELLOW); GLUCOSE, URINE (UA) AUTO NEGATIVE (NEGATIVE); KETONE, URINE AUTO TRACE mg/dL (NEGATIVE); LEUKOCYTE ESTERASE, URINE AUTO NEGATIVE (NEGATIVE); MUCUS, URINE SMALL (NEGATIVE); NITRITE, URINE AUTO NEGATIVE (NEGATIVE); PROTEIN, URINE AUTO 1+ mg/dL (NEGATIVE); RBC, URINE AUTO 0 /HPF (0-3); SQUAMOUS EPITHELIAL CELL UR AU 0 /HPF (0-6); WBC, URINE AUTO 4 /HPF (0-3)
[2021-03-29] VITALS (10 sets, daily range): BP systolic 101–183; BP diastolic 49–86
[2021-03-29] MEDS: ACETAMINOPHEN TAB 650MG DOSE (2X325MG) PO PRN ×3 (01:03→21:11)
[2021-03-29] MEDS ORDERED: SODIUM CHLORIDE 0.9% 1000ML IV ONE (02:00)
[2021-03-29 06:54] LABS: BASO % 0.3 % (0.0-1.0); EOS # 0.2 10^3/uL (0.0-0.5); HEMOGLOBIN 9.2 g/dl (13.5-17.5); LYMPH # 4.6 10^3/uL (1.5-5.0); LYMPH % 57.8 % (24.0-44.0); MEAN CORPUSCULAR HEMOGLOBIN 26.7 pg (27.0-33.0); MEAN CORPUSCULAR HGB CONC 31.7 g/dl (32.0-36.5); MEAN CORPUSCULAR VOLUME 84.1 fl (80.0-96.0); MONO # 0.6 10^3/uL (0.0-0.8); MONO % 7.4 % (2.0-8.0); NEUTROPHILS # 2.5 10^3/uL (1.5-8.5); NEUTROPHILS % 31.6 % (36.0-66.0); PLATELET COUNT, AUTOMATED 171 10^3/uL (150-450); RED BLOOD COUNT 3.45 10^6/uL (4.30-6.10); WHITE BLOOD COUNT 7.9 10^3/uL (4.0-10.0)
[2021-03-29 07:16] LABS: BLOOD UREA NITROGEN 20 MG/DL (7-18); CALCIUM LEVEL 7.7 MG/DL (8.8-10.2); CARBON DIOXIDE LEVEL 27 MEQ/L (21-32); CHLORIDE LEVEL 103 MEQ/L (98-107); CREATININE FOR GFR 0.91 MG/DL (0.70-1.30); GLOMERULAR FILTRATION RATE > 60.0 (>49); GLUCOSE, FASTING 132 MG/DL (70-100); MAGNESIUM LEVEL 1.7 MG/DL (1.8-2.4); PHOSPHORUS LEVEL 3.1 MG/DL (2.5-4.9); POTASSIUM SERUM 4.1 MEQ/L (3.5-5.1); SODIUM LEVEL 139 MEQ/L (136-145)
[2021-03-29] MEDS: AUGMENTIN 875 MG TAB PO SCH ×2 (08:49→21:11)
[2021-03-29] MEDS: LEVEMIR (INSULIN DETEMIR) 1 UNITS/0.01ML SC SCH (08:50)
[2021-03-29] MEDS: FUROSEMIDE 40MG/4ML VIAL (J1940) IV SCH ×2 (08:51→09:00)
[2021-03-29] MEDS: ENOXAPARIN 40MG/0.4ML SYRINGE (J1650 PER 10MG) SC SCH (08:51)
[2021-03-29] MEDS: HumaLOG INSULIN (NovoLOG) PER UNIT SC SCH ×4 (08:52→21:00)
[2021-03-29] MEDS: PANTOPRAZOLE 40MG TAB (PROTONIX) PO SCH ×2 (08:57→21:11)
[2021-03-29] MEDS: SENOKOT S TAB PO SCH ×2 (09:00→21:00)
[2021-03-29] MEDS: BENZONATATE 100MG CAPSULE PO SCH ×3 (09:00→21:00)
[2021-03-29] MEDS: SODIUM CHLORIDE NASAL 0.65% SPRAY BTL (OCEAN) SCH ×4 (09:00→21:13)
[2021-03-29] MEDS: MAG SULF 1GM/100ML (MAG RUN) 1 GM in IV 1 EA IV SCH ×2 (13:03→14:16)
[2021-03-29 21:42] LABS: VENOUS BASE EXCESS -2.8 (-2.0-2.0); VENOUS HCO3 21.4 MEQ/L (23.0-27.0); VENOUS O2 SATURATION 91.7 % (60.0-80.0); VENOUS PARTIAL PRESSURE CO2 34.9 mmHg (38.0-50.0); VENOUS PARTIAL PRESSURE O2 63.8 mmHg (30.0-50.0); VENOUS PH 7.405 UNITS (7.330-7.430); VENOUS TOTAL CO2 22.4 MEQ/L (24.0-28.0)
[2021-03-29 21:48] LABS: BASO % 0.4 % (0.0-1.0); EOS # 0.1 10^3/uL (0.0-0.5); EOS % 1.5 % (0.0-3.0); HEMATOCRIT 32.4 % (42.0-52.0); HEMOGLOBIN 10.2 g/dl (13.5-17.5); LYMPH % 44.1 % (24.0-44.0); MEAN CORPUSCULAR HEMOGLOBIN 26.4 pg (27.0-33.0); MEAN CORPUSCULAR HGB CONC 31.5 g/dl (32.0-36.5); MEAN CORPUSCULAR VOLUME 83.7 fl (80.0-96.0); MONO # 0.8 10^3/uL (0.0-0.8); MONO % 8.6 % (2.0-8.0); NEUTROPHILS % 44.5 % (36.0-66.0); PLATELET COUNT, AUTOMATED 206 10^3/uL (150-450); RED BLOOD COUNT 3.87 10^6/uL (4.30-6.10); WHITE BLOOD COUNT 9.1 10^3/uL (4.0-10.0)
[2021-03-29 22:12] LABS: BLOOD UREA NITROGEN 13 MG/DL (7-18); CALCIUM LEVEL 7.8 MG/DL (8.8-10.2); CARBON DIOXIDE LEVEL 26 MEQ/L (21-32); CHLORIDE LEVEL 103 MEQ/L (98-107); CREATININE FOR GFR 0.93 MG/DL (0.70-1.30); GLOMERULAR FILTRATION RATE > 60.0 (>49); GLUCOSE, FASTING 177 MG/DL (70-100); NT-PRO BNP 355 PG/ML (<125); POTASSIUM SERUM 4.3 MEQ/L (3.5-5.1); SODIUM LEVEL 139 MEQ/L (136-145)
[2021-03-29 22:13] LABS: CK-MB VALUE MASS < 1.0 NG/ML (<3.6); CPK CREATINE PHOSPHOKINASE 28 U/L (39-308); MB/CK RELATIVE INDEX 3.57 (< OR =4)
[2021-03-29] MEDS: CEFEPIME HCL 2 GM in D5W MINI-BAG PLUS 50 ML IV SCH (23:53)
[2021-03-30] VITALS (17 sets, daily range): BP systolic 100–172; BP diastolic 56–83; O2SAT 89–99
[2021-03-30] MEDS ORDERED: VANCOMYCIN HCL 1,000 MG, VIAL MATE ADAPTER 1 EACH in NS 250 ML IV ONE ×3
[2021-03-30] MEDS: VANCOMYCIN HCL 1,000 MG, VIAL MATE ADAPTER 1 EACH in NS 250 ML IV SCH ×3 (00:48→23:40)
[2021-03-30] MEDS: IPRATROPIUM 0.5MG/ALBUTEROL 2.5MG INH SOL UD 3ML (DUONEB) NEB SCH ×4 (02:00→21:19)
[2021-03-30] MEDS: FUROSEMIDE 40MG/4ML VIAL (J1940) IV SCH ×3 (02:03→20:11)
[2021-03-30] MEDS ORDERED: ISOVUE-370 76% 100ML VIAL As Ordered ONE (02:45)
[2021-03-30] MEDS: CEFEPIME HCL 2 GM in D5W MINI-BAG PLUS 50 ML IV SCH ×3 (06:39→21:25)
[2021-03-30] MEDS: HumaLOG INSULIN (NovoLOG) PER UNIT SC SCH ×4 (07:30→21:00)
[2021-03-30 08:16] LABS: BLOOD UREA NITROGEN 11 MG/DL (7-18); CALCIUM LEVEL 8.2 MG/DL (8.8-10.2); CARBON DIOXIDE LEVEL 28 MEQ/L (21-32); CHLORIDE LEVEL 100 MEQ/L (98-107); CREATININE FOR GFR 0.91 MG/DL (0.70-1.30); GLOMERULAR FILTRATION RATE > 60.0 (>49); GLUCOSE, FASTING 232 MG/DL (70-100); POTASSIUM SERUM 4.5 MEQ/L (3.5-5.1); SODIUM LEVEL 136 MEQ/L (136-145)
[2021-03-30 09:13] LABS: ABG BASE EXCESS 1.7 (-2.0-2.0); ABG HCO3 26.1 MEQ/L (22.0-26.0); ABG O2 SATURATION 96.4 % (95.0-99.0); ABG PARTIAL PRESSURE CO2 40.3 mmHg (35.0-45.0); ABG PARTIAL PRESSURE O2 85.5 mmHg (75.0-100.0); ABG TOTAL CO2 27.4 MEQ/L (23.0-31.0)
[2021-03-30] MEDS: SODIUM CHLORIDE NASAL 0.65% SPRAY BTL (OCEAN) SCH ×4 (09:52→20:11)
[2021-03-30] MEDS: PANTOPRAZOLE 40MG TAB (PROTONIX) PO SCH ×2 (09:53→20:11)
[2021-03-30] MEDS: SENOKOT S TAB PO SCH ×2 (09:53→20:10)
[2021-03-30] MEDS: BENZONATATE 100MG CAPSULE PO SCH ×3 (09:53→20:11)
[2021-03-30] MEDS: ENOXAPARIN 40MG/0.4ML SYRINGE (J1650 PER 10MG) SC SCH (09:53)
[2021-03-30] MEDS: dexameTHASONE 4 MG/ML 1ML VIAL (J1100 PER 1MG) IV SCH ×2 (11:18→23:40)
[2021-03-31] VITALS (18 sets, daily range): BP systolic 102–161; BP diastolic 54–83
[2021-03-31] MEDS: IPRATROPIUM 0.5MG/ALBUTEROL 2.5MG INH SOL UD 3ML (DUONEB) NEB SCH ×4 (01:29→20:40)
[2021-03-31] MEDS: guaiFENesin SYRUP 200MG 10ML UDC PO PRN ×2 (05:02→22:51)
[2021-03-31] MEDS: CEFEPIME HCL 2 GM in D5W MINI-BAG PLUS 50 ML IV SCH ×3 (05:03→22:21)
[2021-03-31 05:30] LABS: BASO % 0.2 % (0.0-1.0); HEMATOCRIT 32.8 % (42.0-52.0); HEMOGLOBIN 10.3 g/dl (13.5-17.5); LYMPH # 8.3 10^3/uL (1.5-5.0); LYMPH % 52.2 % (24.0-44.0); MEAN CORPUSCULAR HEMOGLOBIN 26.2 pg (27.0-33.0); MEAN CORPUSCULAR HGB CONC 31.4 g/dl (32.0-36.5); MEAN CORPUSCULAR VOLUME 83.5 fl (80.0-96.0); MONO # 0.4 10^3/uL (0.0-0.8); MONO % 2.7 % (2.0-8.0); NEUTROPHILS % 44.3 % (36.0-66.0); PLATELET COUNT, AUTOMATED 292 10^3/uL (150-450); RED BLOOD COUNT 3.93 10^6/uL (4.30-6.10); WHITE BLOOD COUNT 15.8 10^3/uL (4.0-10.0)
[2021-03-31 05:53] LABS: BLOOD UREA NITROGEN 25 MG/DL (7-18); CALCIUM LEVEL 8.6 MG/DL (8.8-10.2); CARBON DIOXIDE LEVEL 26 MEQ/L (21-32); CHLORIDE LEVEL 97 MEQ/L (98-107); GLOMERULAR FILTRATION RATE > 60.0 (>49); GLUCOSE, FASTING 228 MG/DL (70-100); POTASSIUM SERUM 4.4 MEQ/L (3.5-5.1); SODIUM LEVEL 135 MEQ/L (136-145)
[2021-03-31 05:54] LABS: MAGNESIUM LEVEL 2.1 MG/DL (1.8-2.4); PHOSPHORUS LEVEL 3.9 MG/DL (2.5-4.9)
[2021-03-31] MEDS: SODIUM CHLORIDE NASAL 0.65% SPRAY BTL (OCEAN) SCH ×4 (08:24→20:39)
[2021-03-31] MEDS: ENOXAPARIN 40MG/0.4ML SYRINGE (J1650 PER 10MG) SC SCH (08:25)
[2021-03-31] MEDS: BENZONATATE 100MG CAPSULE PO SCH ×3 (08:26→20:38)
[2021-03-31] MEDS: SENOKOT S TAB PO SCH ×2 (08:26→20:28)
[2021-03-31] MEDS: FUROSEMIDE 40MG/4ML VIAL (J1940) IV SCH ×2 (08:26→20:38)
[2021-03-31] MEDS: HumaLOG INSULIN (NovoLOG) PER UNIT SC SCH ×4 (08:27→20:28)
[2021-03-31] MEDS: PANTOPRAZOLE 40MG TAB (PROTONIX) PO SCH ×2 (08:30→20:38)
[2021-03-31] MEDS: dexameTHASONE 4 MG/ML 1ML VIAL (J1100 PER 1MG) IV SCH ×2 (10:22→23:48)
[2021-03-31] MEDS: VANCOMYCIN HCL 1,000 MG, VIAL MATE ADAPTER 1 EACH in NS 250 ML IV SCH ×2 (11:27→23:48)
[2021-03-31] MEDS ORDERED: hydrOXYzine 10 MG TAB PO ONE (15:00)
[2021-04-01] VITALS (8 sets, daily range): BP systolic 108–162; BP diastolic 51–73
[2021-04-01] MEDS: IPRATROPIUM 0.5MG/ALBUTEROL 2.5MG INH SOL UD 3ML (DUONEB) NEB SCH ×4 (03:06→19:29)
[2021-04-01 04:43] LABS: HEMATOCRIT 26.8 % (42.0-52.0); HEMOGLOBIN 8.6 g/dl (13.5-17.5); MEAN CORPUSCULAR HEMOGLOBIN 26.4 pg (27.0-33.0); MEAN CORPUSCULAR HGB CONC 32.1 g/dl (32.0-36.5); MEAN CORPUSCULAR VOLUME 82.2 fl (80.0-96.0); PLATELET COUNT, AUTOMATED 309 10^3/uL (150-450); RED BLOOD COUNT 3.26 10^6/uL (4.30-6.10)
[2021-04-01 05:09] LABS: CALCIUM LEVEL 8.2 MG/DL (8.8-10.2); CREATININE FOR GFR 1.34 MG/DL (0.70-1.30); GLOMERULAR FILTRATION RATE 57.7 (>49); MAGNESIUM LEVEL 2.1 MG/DL (1.8-2.4); POTASSIUM SERUM 4.3 MEQ/L (3.5-5.1)
[2021-04-01 05:14] LABS: ATYPICAL LYMPH 2 % (0-5); LYMPHOCYTES 44 % (16-44); MONOCYTES 3 % (0-5); NEUTROPHILS 51 % (28-66)
[2021-04-01 05:15] LABS: ANISOCYTOSIS 1+; PLATELET ESTIMATE NORMAL (NORMAL)
[2021-04-01] MEDS: CEFEPIME HCL 2 GM in D5W MINI-BAG PLUS 50 ML IV SCH ×3 (05:21→21:12)
[2021-04-01] MEDS: SENOKOT S TAB PO SCH ×2 (07:48→20:58)
[2021-04-01] MEDS: ENOXAPARIN 40MG/0.4ML SYRINGE (J1650 PER 10MG) SC SCH (07:55)
[2021-04-01] MEDS: HumaLOG INSULIN (NovoLOG) PER UNIT SC SCH ×4 (07:55→21:04)
[2021-04-01] MEDS: guaiFENesin SYRUP 200MG 10ML UDC PO PRN ×2 (07:55→14:04)
[2021-04-01] MEDS: PANTOPRAZOLE 40MG TAB (PROTONIX) PO SCH ×2 (07:56→20:56)
[2021-04-01] MEDS: SODIUM CHLORIDE NASAL 0.65% SPRAY BTL (OCEAN) SCH ×4 (07:56→20:57)
[2021-04-01] MEDS: BENZONATATE 100MG CAPSULE PO SCH ×3 (07:56→20:56)
[2021-04-01] MEDS: dexameTHASONE 4 MG/ML 1ML VIAL (J1100 PER 1MG) IV SCH ×2 (10:56→22:41)
[2021-04-02] VITALS (11 sets, daily range): BP systolic 119–161; BP diastolic 58–85
[2021-04-02] MEDS: IPRATROPIUM 0.5MG/ALBUTEROL 2.5MG INH SOL UD 3ML (DUONEB) NEB SCH ×4 (02:00→19:30)
[2021-04-02 04:51] LABS: HEMATOCRIT 26.6 % (42.0-52.0); HEMOGLOBIN 8.3 g/dl (13.5-17.5); MEAN CORPUSCULAR HEMOGLOBIN 25.9 pg (27.0-33.0); MEAN CORPUSCULAR HGB CONC 31.2 g/dl (32.0-36.5); MEAN CORPUSCULAR VOLUME 83.1 fl (80.0-96.0); PLATELET COUNT, AUTOMATED 351 10^3/uL (150-450); WHITE BLOOD COUNT 12.9 10^3/uL (4.0-10.0)
[2021-04-02 05:14] LABS: BLOOD UREA NITROGEN 50 MG/DL (7-18); CALCIUM LEVEL 8.1 MG/DL (8.8-10.2); CARBON DIOXIDE LEVEL 27 MEQ/L (21-32); CHLORIDE LEVEL 104 MEQ/L (98-107); CREATININE FOR GFR 1.11 MG/DL (0.70-1.30); GLOMERULAR FILTRATION RATE > 60.0 (>49); GLUCOSE, FASTING 268 MG/DL (70-100); MAGNESIUM LEVEL 2.7 MG/DL (1.8-2.4); PHOSPHORUS LEVEL 3.1 MG/DL (2.5-4.9); POTASSIUM SERUM 4.9 MEQ/L (3.5-5.1); SODIUM LEVEL 138 MEQ/L (136-145)
[2021-04-02 05:15] LABS: ANISOCYTOSIS 1+; ATYPICAL LYMPH 8 % (0-5); LYMPHOCYTES 38 % (16-44); MONOCYTES 4 % (0-5); NEUTROPHILS 50 % (28-66); PLATELET ESTIMATE NORMAL (NORMAL)
[2021-04-02 05:16] LABS: POIKILOCYTOSIS 1+; POLYCHROMASIA 1+
[2021-04-02] MEDS: CEFEPIME HCL 2 GM in D5W MINI-BAG PLUS 50 ML IV SCH ×3 (06:23→21:44)
[2021-04-02] MEDS: BENZONATATE 100MG CAPSULE PO SCH ×3 (08:10→20:28)
[2021-04-02] MEDS: HumaLOG INSULIN (NovoLOG) PER UNIT SC SCH ×4 (08:10→20:27)
[2021-04-02] MEDS: PANTOPRAZOLE 40MG TAB (PROTONIX) PO SCH ×2 (08:12→20:28)
[2021-04-02] MEDS: ENOXAPARIN 40MG/0.4ML SYRINGE (J1650 PER 10MG) SC SCH (08:12)
[2021-04-02] MEDS: SODIUM CHLORIDE NASAL 0.65% SPRAY BTL (OCEAN) SCH ×4 (08:13→20:28)
[2021-04-02] MEDS: SENOKOT S TAB PO SCH ×2 (09:00→20:24)
[2021-04-02] MEDS: guaiFENesin SYRUP 200MG 10ML UDC PO PRN ×2 (10:11→18:11)
[2021-04-02] MEDS: dexameTHASONE 4 MG/ML 1ML VIAL (J1100 PER 1MG) IV SCH ×2 (11:46→22:34)
[2021-04-03] VITALS (32 sets, daily range): BP systolic 91–194; BP diastolic 54–94; O2SAT 93
[2021-04-03] MEDS: IPRATROPIUM 0.5MG/ALBUTEROL 2.5MG INH SOL UD 3ML (DUONEB) NEB SCH ×4 (01:59→19:45)
[2021-04-03] MEDS: CEFEPIME HCL 2 GM in D5W MINI-BAG PLUS 50 ML IV SCH ×3 (05:19→21:07)
[2021-04-03] MEDS: ENOXAPARIN 40MG/0.4ML SYRINGE (J1650 PER 10MG) SC SCH (08:06)
[2021-04-03] MEDS: SODIUM CHLORIDE NASAL 0.65% SPRAY BTL (OCEAN) SCH ×4 (08:06→20:26)
[2021-04-03] MEDS: BENZONATATE 100MG CAPSULE PO SCH ×3 (08:07→20:25)
[2021-04-03] MEDS: PANTOPRAZOLE 40MG TAB (PROTONIX) PO SCH ×2 (08:08→20:25)
[2021-04-03] MEDS: SENOKOT S TAB PO SCH ×2 (08:09→20:26)
[2021-04-03] MEDS: HumaLOG INSULIN (NovoLOG) PER UNIT SC SCH ×4 (08:10→20:26)
[2021-04-03] MEDS: dexameTHASONE 4 MG/ML 1ML VIAL (J1100 PER 1MG) IV SCH ×2 (12:02→22:56)
[2021-04-03] MEDS: guaiFENesin SYRUP 200MG 10ML UDC PO PRN ×2 (12:12→21:11)
[2021-04-03] MEDS ORDERED: METOPROLOL 5 MG/5 ML VIAL IV STA ×3 (13:01→13:45)
[2021-04-03] MEDS ORDERED: NS 250 ML IV ONE ×2 (14:15→14:30)
[2021-04-03] MEDS: APIXABAN 5 MG TAB (ELIQUIS) PO SCH ×2 (14:42→20:25)
[2021-04-03 15:26] LABS: INR 1.11; PROTHROMBIN TIME 14.7 SECONDS (12.7-14.5)
[2021-04-03 15:45] LABS: ALBUMIN 2.7 GM/DL (3.2-5.2); BILIRUBIN,DIRECT 0.1 MG/DL (0.0-0.2); BILIRUBIN,TOTAL 0.3 MG/DL (0.2-1.0)
[2021-04-03] MEDS ORDERED: DIGOXIN INJ 0.5 MG/2 ML AMP (J1160) IV STA (16:02)
[2021-04-03] MEDS ORDERED: METOPROLOL TART 25 MG TABLET PO SCH (16:10)
[2021-04-03] MEDS ORDERED: diltiaZEM 125 MG in NS 100 ML IV SCH (17:00)
[2021-04-03] MEDS ORDERED: SODIUM CHLORIDE 0.9% 250ML IV ONE ×2 (22:00→23:10)
[2021-04-04] VITALS (11 sets, daily range): BP systolic 96–159; BP diastolic 60–81
[2021-04-04] MEDS: IPRATROPIUM 0.5MG/ALBUTEROL 2.5MG INH SOL UD 3ML (DUONEB) NEB SCH ×4 (01:47→20:22)
[2021-04-04] MEDS ORDERED: SODIUM CHLORIDE 0.9% 250ML IV ONE (02:25)
[2021-04-04] MEDS ORDERED: DIGOXIN INJ 0.5 MG/2 ML AMP (J1160) IV ONE (02:45)
[2021-04-04] MEDS ORDERED: DIGOXIN INJ 0.5 MG/2 ML AMP (J1160) As Ordered ONE (02:55)
[2021-04-04] MEDS: CEFEPIME HCL 2 GM in D5W MINI-BAG PLUS 50 ML IV SCH ×3 (05:07→22:09)
[2021-04-04 07:19] LABS: HEMATOCRIT 27.4 % (42.0-52.0); HEMOGLOBIN 8.5 g/dl (13.5-17.5); MEAN CORPUSCULAR HEMOGLOBIN 26.5 pg (27.0-33.0); MEAN CORPUSCULAR VOLUME 85.4 fl (80.0-96.0); PLATELET COUNT, AUTOMATED 401 10^3/uL (150-450); RED BLOOD COUNT 3.21 10^6/uL (4.30-6.10)
[2021-04-04 07:44] LABS: ALBUMIN 2.6 GM/DL (3.2-5.2); ALT/SGPT 126 U/L (12-78); BILIRUBIN,TOTAL 0.3 MG/DL (0.2-1.0); BLOOD UREA NITROGEN 27 MG/DL (7-18); CALCIUM LEVEL 8.2 MG/DL (8.8-10.2); CARBON DIOXIDE LEVEL 26 MEQ/L (21-32); CHLORIDE LEVEL 107 MEQ/L (98-107); CREATININE FOR GFR 0.96 MG/DL (0.70-1.30); GLOMERULAR FILTRATION RATE > 60.0 (>49); GLUCOSE, FASTING 257 MG/DL (70-100); SODIUM LEVEL 140 MEQ/L (136-145); TOTAL PROTEIN 6.4 GM/DL (6.4-8.2)
[2021-04-04] MEDS: HumaLOG INSULIN (NovoLOG) PER UNIT SC SCH ×4 (07:53→20:13)
[2021-04-04] MEDS: PANTOPRAZOLE 40MG TAB (PROTONIX) PO SCH ×2 (07:54→20:09)
[2021-04-04] MEDS: METOPROLOL TART 25 MG TABLET PO SCH ×4 (07:54→23:56)
[2021-04-04] MEDS: BENZONATATE 100MG CAPSULE PO SCH ×3 (07:54→20:09)
[2021-04-04] MEDS: SENOKOT S TAB PO SCH ×2 (07:55→20:09)
[2021-04-04] MEDS: APIXABAN 5 MG TAB (ELIQUIS) PO SCH ×2 (07:55→20:09)
[2021-04-04] MEDS: SODIUM CHLORIDE NASAL 0.65% SPRAY BTL (OCEAN) SCH ×4 (07:56→21:00)
[2021-04-04] MEDS: dexameTHASONE 4 MG/ML 1ML VIAL (J1100 PER 1MG) IV SCH ×2 (11:08→22:10)
[2021-04-04] MEDS: guaiFENesin SYRUP 200MG 10ML UDC PO PRN ×3 (12:01→20:09)
[2021-04-05] VITALS (8 sets, daily range): BP systolic 144–169; BP diastolic 63–83; O2SAT 96
[2021-04-05] MEDS: guaiFENesin SYRUP 200MG 10ML UDC PO PRN ×3 (02:24→20:29)
[2021-04-05] MEDS: IPRATROPIUM 0.5MG/ALBUTEROL 2.5MG INH SOL UD 3ML (DUONEB) NEB SCH ×4 (04:18→19:14)
[2021-04-05 05:07] LABS: HEMATOCRIT 27.6 % (42.0-52.0); HEMOGLOBIN 8.4 g/dl (13.5-17.5); MEAN CORPUSCULAR HEMOGLOBIN 25.8 pg (27.0-33.0); MEAN CORPUSCULAR HGB CONC 30.4 g/dl (32.0-36.5); MEAN CORPUSCULAR VOLUME 84.9 fl (80.0-96.0); PLATELET COUNT, AUTOMATED 436 10^3/uL (150-450); RED BLOOD COUNT 3.25 10^6/uL (4.30-6.10); WHITE BLOOD COUNT 11.3 10^3/uL (4.0-10.0)
[2021-04-05 05:31] LABS: BLOOD UREA NITROGEN 25 MG/DL (7-18); CALCIUM LEVEL 8.3 MG/DL (8.8-10.2); CARBON DIOXIDE LEVEL 24 MEQ/L (21-32); CHLORIDE LEVEL 106 MEQ/L (98-107); CREATININE FOR GFR 0.98 MG/DL (0.70-1.30); GLOMERULAR FILTRATION RATE > 60.0 (>49); GLUCOSE, FASTING 270 MG/DL (70-100); PHOSPHORUS LEVEL 3.2 MG/DL (2.5-4.9); POTASSIUM SERUM 4.8 MEQ/L (3.5-5.1); SODIUM LEVEL 139 MEQ/L (136-145)
[2021-04-05 05:41] LABS: ANISOCYTOSIS 1+; ATYPICAL LYMPH 7 % (0-5); LYMPHOCYTES 49 % (16-44); MONOCYTES 1 % (0-5); MYELOCYTES 2 % (0-0); NEUTROPHILS 40 % (28-66); PLATELET ESTIMATE NORMAL (NORMAL); POIKILOCYTOSIS 1+
[2021-04-05] MEDS: METOPROLOL TART 25 MG TABLET PO SCH ×3 (05:47→17:13)
[2021-04-05] MEDS: CEFEPIME HCL 2 GM in D5W MINI-BAG PLUS 50 ML IV SCH ×2 (05:47→14:27)
[2021-04-05] MEDS: HumaLOG INSULIN (NovoLOG) PER UNIT SC SCH ×4 (07:58→20:29)
[2021-04-05] MEDS: APIXABAN 5 MG TAB (ELIQUIS) PO SCH ×2 (07:59→20:29)
[2021-04-05] MEDS: PANTOPRAZOLE 40MG TAB (PROTONIX) PO SCH ×2 (07:59→20:29)
[2021-04-05] MEDS: SENOKOT S TAB PO SCH ×2 (07:59→20:30)
[2021-04-05] MEDS: BENZONATATE 100MG CAPSULE PO SCH ×3 (07:59→20:29)
[2021-04-05] MEDS: SODIUM CHLORIDE NASAL 0.65% SPRAY BTL (OCEAN) SCH ×4 (07:59→20:30)
[2021-04-05] MEDS: FUROSEMIDE 20 MG TAB PO SCH (11:37)
[2021-04-05] MEDS: dexameTHASONE 4 MG/ML 1ML VIAL (J1100 PER 1MG) IV SCH ×2 (11:37→23:04)
[2021-04-06] VITALS (8 sets, daily range): BP systolic 118–168; BP diastolic 59–85; O2SAT 95–98
[2021-04-06] MEDS: METOPROLOL TART 25 MG TABLET PO SCH ×4 (00:05→17:41)
[2021-04-06] MEDS: IPRATROPIUM 0.5MG/ALBUTEROL 2.5MG INH SOL UD 3ML (DUONEB) NEB SCH ×4 (01:10→20:06)
[2021-04-06] MEDS: guaiFENesin SYRUP 200MG 10ML UDC PO PRN (08:26)
[2021-04-06] MEDS: FUROSEMIDE 20 MG TAB PO SCH (08:27)
[2021-04-06] MEDS: BENZONATATE 100MG CAPSULE PO SCH ×3 (08:27→20:39)
[2021-04-06] MEDS: APIXABAN 5 MG TAB (ELIQUIS) PO SCH ×2 (08:27→20:39)
[2021-04-06] MEDS: PANTOPRAZOLE 40MG TAB (PROTONIX) PO SCH ×2 (08:28→20:39)
[2021-04-06] MEDS: HumaLOG INSULIN (NovoLOG) PER UNIT SC SCH ×4 (08:28→20:38)
[2021-04-06] MEDS: SENOKOT S TAB PO SCH ×2 (08:29→20:38)
[2021-04-06] MEDS: SODIUM CHLORIDE NASAL 0.65% SPRAY BTL (OCEAN) SCH ×4 (08:29→20:39)
[2021-04-06] MEDS: dexameTHASONE 4 MG/ML 1ML VIAL (J1100 PER 1MG) IV SCH (10:46)
[2021-04-06] MEDS ORDERED: CEPACOL LOZENGE PO PRN (11:50)
[2021-04-07] VITALS (10 sets, daily range): BP systolic 131–151; BP diastolic 59–80; O2SAT 85–98
[2021-04-07] MEDS: METOPROLOL TART 25 MG TABLET PO SCH ×4 (00:30→17:37)
[2021-04-07] MEDS: IPRATROPIUM 0.5MG/ALBUTEROL 2.5MG INH SOL UD 3ML (DUONEB) NEB SCH ×4 (01:22→19:58)
[2021-04-07 04:41] LABS: HEMATOCRIT 29.6 % (42.0-52.0); HEMOGLOBIN 9.5 g/dl (13.5-17.5); MEAN CORPUSCULAR HEMOGLOBIN 26.8 pg (27.0-33.0); MEAN CORPUSCULAR HGB CONC 32.1 g/dl (32.0-36.5); MEAN CORPUSCULAR VOLUME 83.6 fl (80.0-96.0); PLATELET COUNT, AUTOMATED 475 10^3/uL (150-450); RED BLOOD COUNT 3.54 10^6/uL (4.30-6.10); WHITE BLOOD COUNT 13.2 10^3/uL (4.0-10.0)
[2021-04-07 05:06] LABS: BLOOD UREA NITROGEN 25 MG/DL (7-18); CALCIUM LEVEL 8.4 MG/DL (8.8-10.2); CARBON DIOXIDE LEVEL 28 MEQ/L (21-32); CHLORIDE LEVEL 103 MEQ/L (98-107); CREATININE FOR GFR 0.81 MG/DL (0.70-1.30); GLOMERULAR FILTRATION RATE > 60.0 (>49); GLUCOSE, FASTING 174 MG/DL (70-100); MAGNESIUM LEVEL 1.8 MG/DL (1.8-2.4); PHOSPHORUS LEVEL 3.9 MG/DL (2.5-4.9); POTASSIUM SERUM 3.9 MEQ/L (3.5-5.1); SODIUM LEVEL 140 MEQ/L (136-145)
[2021-04-07] MEDS: HumaLOG INSULIN (NovoLOG) PER UNIT SC SCH ×4 (08:56→22:08)
[2021-04-07] MEDS: SODIUM CHLORIDE NASAL 0.65% SPRAY BTL (OCEAN) SCH ×4 (08:57→21:36)
[2021-04-07] MEDS: dexameTHASONE 4 MG/ML 1ML VIAL (J1100 PER 1MG) IV SCH (08:57)
[2021-04-07] MEDS: PANTOPRAZOLE 40MG TAB (PROTONIX) PO SCH ×2 (08:57→21:35)
[2021-04-07] MEDS: APIXABAN 5 MG TAB (ELIQUIS) PO SCH ×2 (08:57→21:35)
[2021-04-07] MEDS: SENOKOT S TAB PO SCH ×2 (08:57→21:00)
[2021-04-07] MEDS: BENZONATATE 100MG CAPSULE PO SCH ×3 (08:58→21:35)
[2021-04-07] MEDS ORDERED: MAGNESIUM OXIDE 400MG TAB (MAG-OX) PO ONE (10:00)
[2021-04-08] VITALS: BP 132/67
[2021-04-08] MEDS: METOPROLOL TART 25 MG TABLET PO SCH ×4 (00:58→17:39)
[2021-04-08] MEDS: IPRATROPIUM 0.5MG/ALBUTEROL 2.5MG INH SOL UD 3ML (DUONEB) NEB SCH ×4 (01:43→20:22)
[2021-04-08 04:00] VITALS: BP 141/75
[2021-04-08 08:00] VITALS: BP 147/77
[2021-04-08] MEDS: dexameTHASONE 4 MG/ML 1ML VIAL (J1100 PER 1MG) IV SCH (08:12)
[2021-04-08] MEDS: BENZONATATE 100MG CAPSULE PO SCH ×3 (08:13→21:37)
[2021-04-08] MEDS: APIXABAN 5 MG TAB (ELIQUIS) PO SCH ×2 (08:13→21:37)
[2021-04-08] MEDS: PANTOPRAZOLE 40MG TAB (PROTONIX) PO SCH ×2 (08:13→21:37)
[2021-04-08] MEDS: FUROSEMIDE 20 MG TAB PO SCH (08:13)
[2021-04-08] MEDS: LEVEMIR (INSULIN DETEMIR) 1 UNITS/0.01ML SC SCH (08:14)
[2021-04-08] MEDS: SENOKOT S TAB PO SCH ×2 (08:14→21:00)
[2021-04-08] MEDS: SODIUM CHLORIDE NASAL 0.65% SPRAY BTL (OCEAN) SCH ×4 (08:14→21:37)
[2021-04-08] MEDS: HumaLOG INSULIN (NovoLOG) PER UNIT SC SCH ×4 (08:14→21:00)
[2021-04-08 12:00] VITALS: BP 133/62
[2021-04-08 20:00] VITALS: BP 128/69
[2021-04-08] MEDS: guaiFENesin SYRUP 200MG 10ML UDC PO PRN (21:38)
[2021-04-09] VITALS (17 sets, daily range): BP systolic 119–152; BP diastolic 58–79; O2SAT 92–99
[2021-04-09] MEDS: METOPROLOL TART 25 MG TABLET PO SCH ×4 (01:00→18:22)
[2021-04-09] MEDS: IPRATROPIUM 0.5MG/ALBUTEROL 2.5MG INH SOL UD 3ML (DUONEB) NEB SCH ×4 (01:54→20:24)
[2021-04-09 05:04] LABS: HEMATOCRIT 32.4 % (42.0-52.0); HEMOGLOBIN 10.3 g/dl (13.5-17.5); MEAN CORPUSCULAR HEMOGLOBIN 26.6 pg (27.0-33.0); MEAN CORPUSCULAR HGB CONC 31.8 g/dl (32.0-36.5); MEAN CORPUSCULAR VOLUME 83.7 fl (80.0-96.0); PLATELET COUNT, AUTOMATED 465 10^3/uL (150-450); RED BLOOD COUNT 3.87 10^6/uL (4.30-6.10); WHITE BLOOD COUNT 12.8 10^3/uL (4.0-10.0)
[2021-04-09 05:25] LABS: BLOOD UREA NITROGEN 21 MG/DL (7-18); CALCIUM LEVEL 8.5 MG/DL (8.8-10.2); CARBON DIOXIDE LEVEL 28 MEQ/L (21-32); CHLORIDE LEVEL 102 MEQ/L (98-107); CREATININE FOR GFR 0.76 MG/DL (0.70-1.30); GLOMERULAR FILTRATION RATE > 60.0 (>49); GLUCOSE, FASTING 157 MG/DL (70-100); MAGNESIUM LEVEL 1.9 MG/DL (1.8-2.4); PHOSPHORUS LEVEL 4.2 MG/DL (2.5-4.9); POTASSIUM SERUM 4.3 MEQ/L (3.5-5.1); SODIUM LEVEL 136 MEQ/L (136-145)
[2021-04-09] MEDS: HumaLOG INSULIN (NovoLOG) PER UNIT SC SCH ×4 (08:04→20:46)
[2021-04-09] MEDS: BENZONATATE 100MG CAPSULE PO SCH ×3 (08:05→20:52)
[2021-04-09] MEDS: PANTOPRAZOLE 40MG TAB (PROTONIX) PO SCH ×2 (08:06→20:52)
[2021-04-09] MEDS: APIXABAN 5 MG TAB (ELIQUIS) PO SCH ×2 (08:06→20:52)
[2021-04-09] MEDS: predniSONE 10 MG TAB PO SCH (08:07)
[2021-04-09] MEDS: LEVEMIR (INSULIN DETEMIR) 1 UNITS/0.01ML SC SCH (08:07)
[2021-04-09] MEDS: SENOKOT S TAB PO SCH ×2 (08:07→20:52)
[2021-04-09] MEDS: SODIUM CHLORIDE NASAL 0.65% SPRAY BTL (OCEAN) SCH ×4 (08:09→20:52)
[2021-04-09] MEDS: guaiFENesin SYRUP 200MG 10ML UDC PO PRN (12:01)
[2021-04-10] VITALS (18 sets, daily range): BP systolic 121–154; BP diastolic 59–86; O2SAT 90–98
[2021-04-10] MEDS: METOPROLOL TART 25 MG TABLET PO SCH ×4 (00:54→17:20)
[2021-04-10] MEDS: IPRATROPIUM 0.5MG/ALBUTEROL 2.5MG INH SOL UD 3ML (DUONEB) NEB SCH ×4 (01:54→19:26)
[2021-04-10 04:45] LABS: HEMATOCRIT 31.1 % (42.0-52.0); MEAN CORPUSCULAR HEMOGLOBIN 26.8 pg (27.0-33.0); MEAN CORPUSCULAR HGB CONC 32.2 g/dl (32.0-36.5); MEAN CORPUSCULAR VOLUME 83.4 fl (80.0-96.0); PLATELET COUNT, AUTOMATED 407 10^3/uL (150-450); RED BLOOD COUNT 3.73 10^6/uL (4.30-6.10); WHITE BLOOD COUNT 12.2 10^3/uL (4.0-10.0)
[2021-04-10 05:04] LABS: ALBUMIN 2.7 GM/DL (3.2-5.2); ALT/SGPT 48 U/L (12-78); BILIRUBIN,TOTAL 0.3 MG/DL (0.2-1.0); BLOOD UREA NITROGEN 22 MG/DL (7-18); CALCIUM LEVEL 8.4 MG/DL (8.8-10.2); CARBON DIOXIDE LEVEL 33 MEQ/L (21-32); CHLORIDE LEVEL 103 MEQ/L (98-107); CREATININE FOR GFR 0.72 MG/DL (0.70-1.30); GLOMERULAR FILTRATION RATE > 60.0 (>49); GLUCOSE, FASTING 120 MG/DL (70-100); MAGNESIUM LEVEL 1.8 MG/DL (1.8-2.4); PHOSPHORUS LEVEL 4.1 MG/DL (2.5-4.9); SODIUM LEVEL 141 MEQ/L (136-145)
[2021-04-10 05:12] LABS: ANISOCYTOSIS 2+; ATYPICAL LYMPH 12 % (0-5); EOSINOPHILS 1 % (0-3); LYMPHOCYTES 49 % (16-44); METAMYELOCYTES 1 % (0-0); MONOCYTES 3 % (0-5); MYELOCYTES 2 % (0-0); NEUTROPHILS 32 % (28-66); PLATELET ESTIMATE NORMAL (NORMAL); POIKILOCYTOSIS 1+
[2021-04-10] MEDS: predniSONE 10 MG TAB PO SCH (07:35)
[2021-04-10] MEDS: BENZONATATE 100MG CAPSULE PO SCH ×3 (07:35→20:18)
[2021-04-10] MEDS: PANTOPRAZOLE 40MG TAB (PROTONIX) PO SCH ×2 (07:36→20:19)
[2021-04-10] MEDS: FUROSEMIDE 20 MG TAB PO SCH (07:36)
[2021-04-10] MEDS: APIXABAN 5 MG TAB (ELIQUIS) PO SCH ×2 (07:36→20:19)
[2021-04-10] MEDS: HumaLOG INSULIN (NovoLOG) PER UNIT SC SCH ×4 (07:37→20:12)
[2021-04-10] MEDS: SENOKOT S TAB PO SCH ×2 (07:37→20:18)
[2021-04-10] MEDS: LEVEMIR (INSULIN DETEMIR) 1 UNITS/0.01ML SC SCH (07:37)
[2021-04-10] MEDS: SODIUM CHLORIDE NASAL 0.65% SPRAY BTL (OCEAN) SCH ×4 (07:42→21:00)
[2021-04-10] MEDS: guaiFENesin SYRUP 200MG 10ML UDC PO PRN (12:03)
[2021-04-11] VITALS (22 sets, daily range): BP systolic 91–150; BP diastolic 54–78; O2SAT 86–100
[2021-04-11] MEDS: METOPROLOL TART 25 MG TABLET PO SCH ×4 (00:34→17:32)
[2021-04-11] MEDS: IPRATROPIUM 0.5MG/ALBUTEROL 2.5MG INH SOL UD 3ML (DUONEB) NEB SCH ×3 (01:44→14:00)
[2021-04-11 05:44] LABS: HEMATOCRIT 32.7 % (42.0-52.0); MEAN CORPUSCULAR HEMOGLOBIN 26.3 pg (27.0-33.0); MEAN CORPUSCULAR HGB CONC 30.6 g/dl (32.0-36.5); MEAN CORPUSCULAR VOLUME 86.1 fl (80.0-96.0); PLATELET COUNT, AUTOMATED 369 10^3/uL (150-450); WHITE BLOOD COUNT 11.7 10^3/uL (4.0-10.0)
[2021-04-11 06:13] LABS: BLOOD UREA NITROGEN 20 MG/DL (7-18); CALCIUM LEVEL 8.2 MG/DL (8.8-10.2); CARBON DIOXIDE LEVEL 34 MEQ/L (21-32); CHLORIDE LEVEL 102 MEQ/L (98-107); CREATININE FOR GFR 0.71 MG/DL (0.70-1.30); GLOMERULAR FILTRATION RATE > 60.0 (>49); GLUCOSE, FASTING 120 MG/DL (70-100); POTASSIUM SERUM 3.6 MEQ/L (3.5-5.1); SODIUM LEVEL 138 MEQ/L (136-145)
[2021-04-11] MEDS: HumaLOG INSULIN (NovoLOG) PER UNIT SC SCH ×4 (07:30→20:48)
[2021-04-11] MEDS: SENOKOT S TAB PO SCH ×2 (09:00→20:39)
[2021-04-11] MEDS: APIXABAN 5 MG TAB (ELIQUIS) PO SCH ×2 (09:03→21:29)
[2021-04-11] MEDS: PANTOPRAZOLE 40MG TAB (PROTONIX) PO SCH ×2 (09:03→21:29)
[2021-04-11] MEDS: predniSONE 10 MG TAB PO SCH (09:03)
[2021-04-11] MEDS: LEVEMIR (INSULIN DETEMIR) 1 UNITS/0.01ML SC SCH (09:04)
[2021-04-11] MEDS: BENZONATATE 100MG CAPSULE PO SCH ×3 (09:04→21:29)
[2021-04-11] MEDS: SODIUM CHLORIDE NASAL 0.65% SPRAY BTL (OCEAN) SCH ×4 (09:04→21:28)
[2021-04-11] MEDS ORDERED: IPRATROPIUM 0.5MG/ALBUTEROL 2.5MG INH SOL UD 3ML (DUONEB) NEB PRN (14:45)
[2021-04-12] VITALS (11 sets, daily range): BP systolic 139–167; BP diastolic 67–80; O2SAT 76–95
[2021-04-12] MEDS: METOPROLOL TART 25 MG TABLET PO SCH ×3 (00:18→12:00)
[2021-04-12 05:16] LABS: HEMATOCRIT 34.3 % (42.0-52.0); HEMOGLOBIN 10.8 g/dl (13.5-17.5); MEAN CORPUSCULAR HEMOGLOBIN 26.5 pg (27.0-33.0); MEAN CORPUSCULAR HGB CONC 31.5 g/dl (32.0-36.5); MEAN CORPUSCULAR VOLUME 84.3 fl (80.0-96.0); PLATELET COUNT, AUTOMATED 363 10^3/uL (150-450); RED BLOOD COUNT 4.07 10^6/uL (4.30-6.10); WHITE BLOOD COUNT 12.6 10^3/uL (4.0-10.0)
[2021-04-12 05:39] LABS: BLOOD UREA NITROGEN 21 MG/DL (7-18); CALCIUM LEVEL 8.4 MG/DL (8.8-10.2); CARBON DIOXIDE LEVEL 31 MEQ/L (21-32); CHLORIDE LEVEL 105 MEQ/L (98-107); CREATININE FOR GFR 0.75 MG/DL (0.70-1.30); GLOMERULAR FILTRATION RATE > 60.0 (>49); GLUCOSE, FASTING 126 MG/DL (70-100); POTASSIUM SERUM 3.8 MEQ/L (3.5-5.1); SODIUM LEVEL 141 MEQ/L (136-145)
[2021-04-12] MEDS: SENOKOT S TAB PO SCH (08:19)
[2021-04-12] MEDS: BENZONATATE 100MG CAPSULE PO SCH (08:20)
[2021-04-12] MEDS: HumaLOG INSULIN (NovoLOG) PER UNIT SC SCH ×2 (08:21→12:00)
[2021-04-12] MEDS: SODIUM CHLORIDE NASAL 0.65% SPRAY BTL (OCEAN) SCH ×2 (08:21→13:16)
[2021-04-12] MEDS: APIXABAN 5 MG TAB (ELIQUIS) PO SCH (08:21)
[2021-04-12] MEDS: FUROSEMIDE 20 MG TAB PO SCH (08:21)
[2021-04-12] MEDS: LEVEMIR (INSULIN DETEMIR) 1 UNITS/0.01ML SC SCH (08:21)
[2021-04-12] MEDS: PANTOPRAZOLE 40MG TAB (PROTONIX) PO SCH (08:21)
[2021-04-12] MEDS: predniSONE 10 MG TAB PO SCH (08:21)
[2021-04-12] MEDS ORDERED: TAMSULOSIN 0.4 MG CAP PO SCH (09:00)
[2021-04-12] MEDS ORDERED: FLOM0.4C39 PO (10:43)
[2021-04-12] MEDS ORDERED: METO1TAB87 PO (10:43)
[2021-04-12] MEDS ORDERED: SORE15LO PO (10:43)
[2021-04-12] MEDS ORDERED: BENZ-18 PO (10:43)
[2021-04-12] MEDS ORDERED: ELIQ5TAB PO (10:43)
[2021-04-12] MEDS ORDERED: FURO20TA2 PO (10:43)
[2021-04-12] MEDS ORDERED: PANT40TA29 PO (10:43)
[2021-04-12] MEDS ORDERED: PRED10TA2 PO (10:43)
== END 2021-04-12 14:32 | disposition short-term general hospital (02) | DRG 137 ==
LOC: M ICU 19:19 → M PCU 03-17 21:25 → M MSPAV 03-20 16:51 → M PCU 03-29 23:01 → M ICU 03-31 17:39 → M PCU 04-06 18:56
PROVIDERS: ADMIT Internal Medicine; ATTEND Family Medicine
PROC: 3E0333Z Introduction of Anti-inflammatory into Peripheral Vein, Percutaneous Approach (ICD-10-PCS; principal; 2021-02-24)
PROC: XW033E5 Introduction of Remdesivir Anti-infective into Peripheral Vein, Percutaneous Approach, New Technology Group 5 (ICD-10-PCS; 2021-02-24)
DX: U07.1 COVID-19 (principal); J96.01 Acute respiratory failure with hypoxia; J12.82 Pneumonia due to coronavirus disease 2019; A41.9 Sepsis, unspecified organism; I47.2 Ventricular tachycardia; I11.0 Hypertensive heart disease with heart failure; E11.9 Type 2 diabetes mellitus without complications; J32.9 Chronic sinusitis, unspecified; J15.9 Unspecified bacterial pneumonia; I50.30 Unspecified diastolic (congestive) heart failure; I48.91 Unspecified atrial fibrillation; E66.9 Obesity, unspecified; F32.A Depression, unspecified; K64.8 Other hemorrhoids; Z90.49 Acquired absence of other specified parts of digestive tract; Z79.84 Long term (current) use of oral hypoglycemic drugs; Z79.899 Other long term (current) drug therapy; Z68.36 Body mass index [BMI] 36.0-36.9, adult

== ENCOUNTER → 2021-12-01 | Outpatient (CLI) | payer BC ==
[~2021-12-01] MED LIST changes: +BENZ-18 PO; +BENZ1LOZ2 PO; +ELIQ5TAB PO; +FLOM0.4C39 PO; +FURO20TA2 PO; +METF-877 PO; +METO1TAB87 PO; +PANT40TA29 PO; +PRED10TA2 PO
[2021-12-01 15:59] LABS: BLOOD UREA NITROGEN 14 MG/DL (7-18); CALCIUM LEVEL 9.2 MG/DL (8.8-10.2); CARBON DIOXIDE LEVEL 27 MEQ/L (21-32); CHLORIDE LEVEL 103 MEQ/L (98-107); CREATININE FOR GFR 1.15 MG/DL (0.70-1.30); GLOMERULAR FILTRATION RATE > 60.0 (>49); GLUCOSE, FASTING 342 MG/DL (70-100); NT-PRO BNP 119 PG/ML (<125); POTASSIUM SERUM 4.7 MEQ/L (3.5-5.1); SODIUM LEVEL 139 MEQ/L (136-145)
== END ==
LOC: M LAB 14:48
PROVIDERS: ATTEND Internal Medicine Cardiovascular Disease
DX: I50.32 Chronic diastolic (congestive) heart failure (principal)

== ENCOUNTER → 2022-06-17 | Outpatient (REF) | payer BC ==
[~2022-06-17] MED LIST changes: +TREL1AER
[2022-06-17 12:52] LABS: BASO # 0.1 10^3/uL (0.0-0.2); BASO % 0.7 % (0.0-1.0); EOS # 0.2 10^3/uL (0.0-0.5); EOS % 2.6 % (0.0-3.0); HEMATOCRIT 44.5 % (42.0-52.0); HEMOGLOBIN 14.2 g/dl (13.5-17.5); LYMPH # 4.1 10^3/uL (1.5-5.0); LYMPH % 48.1 % (24.0-44.0); MEAN CORPUSCULAR HEMOGLOBIN 26.2 pg (27.0-33.0); MEAN CORPUSCULAR HGB CONC 31.9 g/dl (32.0-36.5); MEAN CORPUSCULAR VOLUME 82.1 fl (80.0-96.0); MONO # 0.5 10^3/uL (0.0-0.8); NEUTROPHILS # 3.6 10^3/uL (1.5-8.5); NEUTROPHILS % 42.2 % (36.0-66.0); PLATELET COUNT, AUTOMATED 194 10^3/uL (150-450); RED BLOOD COUNT 5.42 10^6/uL (4.30-6.10); WHITE BLOOD COUNT 8.5 10^3/uL (4.0-10.0)
[2022-06-17 12:58] LABS: APPEARANCE, URINE CLEAR (CLEAR); BACTERIA, URINE AUTO NEGATIVE (NEGATIVE); BILIRUBIN, URINE AUTO NEGATIVE (NEGATIVE); BLOOD, URINE BLOOD NEGATIVE (NEGATIVE); COLOR, URINE YELLOW (YELLOW); GLUCOSE, URINE (UA) AUTO 3+ mg/dL (NEGATIVE); KETONE, URINE AUTO NEGATIVE (NEGATIVE); LEUKOCYTE ESTERASE, URINE AUTO NEGATIVE (NEGATIVE); NITRITE, URINE AUTO NEGATIVE (NEGATIVE); PROTEIN, URINE AUTO NEGATIVE (NEGATIVE); RBC, URINE AUTO 0 /HPF (0-3); SPECIFIC GRAVITY URINE AUTO 1.013 (1.002-1.035); SQUAMOUS EPITHELIAL CELL UR AU 0 /HPF (0-6); UROBILINOGEN, URINE AUTO 0.2 mg/dL (0.0-2.0); WBC, URINE AUTO 0 /HPF (0-3)
[2022-06-17 13:25] LABS: CREATININE,RANDOM URINE 48.1 MG/DL
[2022-06-17 13:32] LABS: TOTAL PROTEIN,RANDOM URINE < 6.0 MG/DL (0.0-14.0)
[2022-06-17 16:49] LABS: COMPLEMENT C3 132.6 MG/DL (90.0-170.0)
== END ==
LOC: M SFHCRHEU 10:31
PROVIDERS: ATTEND Internal Medicine
DX: J84.9 Interstitial pulmonary disease, unspecified (principal); D72.829 Elevated white blood cell count, unspecified